=== PATIENT | male | born 1960 | race African-American/Black ===

== ENCOUNTER 2019-02-14 11:28 | Inpatient (IN) | payer MEDICARE, OTHER ==
--- NOTE | 2019-02-14 12:17 | RAD ---
PA AND LATERAL CHEST: Indication: Shortness of breath with bilateral lower extremity swelling. Comparison: None. FINDINGS: There is cardiomegaly with pulmonary vascular congestion and small bilateral pleural effusions, left greater than right. No acute osseous abnormality is evident. IMPRESSION: Findings of mild CHF. POS: [facility]
[2019-02-14 13:38] LABS: #Lymphocytes 1.1 thou/uL (1.20-3.40); #Monocytes 0.4 thou/uL (0.11-0.59); #Neutrophils 5.8 thou/uL (1.40-6.50); %Eosinophils 0.3 % (0.0-10.0); %Lymphocytes 15.4 % (21.0-51.0); %Monocytes 5.2 % (0.0-10.0); %Neutrophils 79.1 % (42.0-75.0); Hemoglobin 12.6 g/dL (14.0-18.0); Mean Corpuscular HGB CONC 30.2 g/dL (32.0-36.0); Mean Corpuscular Hemoglobin 26.4 pg (27.0-31.0); Mean Corpuscular Volume 87.4 fL (78.0-98.0); Mean Platelet Volume 8.2 fL (7.4-10.4); Platelet Count 183 thou/uL (130-400); RBC Distribution Width 13.8 % (11.5-14.5); Red Blood Cell (RBC) Count 4.76 mill/uL (4.70-6.10); White Blood Cell (WBC) Count 7.3 thou/uL (4.8-10.8)
[2019-02-14 13:58] LABS: ALT (SGPT) 58 U/L (8-55); AST (SGOT) 57 U/L (5-34); Albumin 3.4 g/dL (3.5-5.0); Alkaline Phosphatase 96 U/L (40-150); Anion Gap 8 mmol/L (10-20); BUN (Urea Nitrogen) 11 mg/dL (8.4-25.7); Bilirubin, Total 0.5 mg/dL (0.2-1.2); Calc. Creatinine Clearance 0 mL/min (70-130); Carbon Dioxide 37 mmol/L (22-29); Chloride 100 mmol/L (98-107); Estimated GFR-MDRD Greater than 90; Globulin 2.8 g/dL (2.4-3.5); Glucose 100 mg/dL (70-105); Potassium 3.3 mmol/L (3.5-5.1); Protein, Total 6.2 g/dL (6.0-8.3); Sodium 142 mmol/L (136-145)
[2019-02-14] MEDS ORDERED: Furosemide 100 MG/10 ML VIAL ONE (14:54)
[2019-02-14] MEDS ORDERED: Potassium Chloride 20 MEQ TAB ONE (14:54)
[2019-02-14] MEDS ORDERED: Aspirin Chewable 81 MG TAB ONE (14:54)
[2019-02-14 15:04] LABS: Bilirubin Negative (Negative); Blood, Urine Negative (Negative); Clarity TURBID (Clear); Glucose, Urine (Dipstick) Negative (Negative); Leukocyte Negative (Negative); Nitrite Negative (Negative); Protein, Urine (Dipstick) 30 mg/dL (Neg-Trace); Specific Gravity, Urine 1.011 (1.002-1.036); Urobilinogen 0.2 mg/dL (0.2-1.0); pH, Urine 7.5 (5.0-9.0)
[2019-02-14 15:05] LABS: Actual Bicarbonate (HCO3a) 33.8 mEq/L (22-28); Analyzer IN Cardio ER; Base Excess (BEa) 8.6 mEq/L (-2.0 to +3.0); Calcium, Ionized 1.14 mmol/L (1.12-1.30); Carboxyhemoglobin (COHb) 1.2 gm% (0.0-3.0); Hemoglobin (Hb) 13.4 g/dL (14.0-18.0); Potassium - ABG Lab 3.28 mmol/L (3.70-5.30); pH, Arterial 7.46 (7.35-7.45)
[2019-02-14 15:06] LABS: Bacteria/HPF None Seen HPF (None Seen); Hyaline Casts/LPF 0-3 HYALINE CAST LPF (0-3 Hyaline); Squamous Epithelial 0-3 HPF (0-3); WBC/HPF 0-3 HPF (0-3)
[2019-02-14 15:07] LABS: O2 Tension (PaO2) 50.3 mmHg (80.0-100.0)
[2019-02-14 15:08] LABS: Puncture Site RRA
[2019-02-14 15:08] LABS: CKMB 25.1 ng/mL (0-6.6)
[2019-02-14] MEDS ORDERED: Nitroglycerin 2% Ointment 1 INCH/1 GM Packet ONE (15:34)
[2019-02-14] MEDS ORDERED: Metoprolol Tartrate 5 MG/5 ML VIAL IVP SCH (18:00)
[2019-02-14] MEDS ORDERED: Acetaminophen 325 MG TAB PO PRN (18:00)
[2019-02-14] MEDS ORDERED: cloNIDine 0.1 MG TAB PO PRN (18:00)
[2019-02-14] MEDS ORDERED: hydrALAZINE 20 MG/ML VIAL SLOW IVP PRN (18:00)
[2019-02-14 18:26] LABS: Troponin I 0.071 ng/mL (< 0.028)
[2019-02-14] MEDS ORDERED: ALPRAZolam 0.25 MG TAB PO PRN (20:23)
[2019-02-14] MEDS: Famotidine 20 MG TAB PO SCH (20:28)
[2019-02-14] MEDS: Carvedilol 6.25 MG TAB PO SCH (20:28)
[2019-02-14] MEDS ORDERED: ALPRAZolam 0.5 MG TAB PO SCH (20:30)
[2019-02-14 20:40] LABS: Troponin I 0.067 ng/mL (< 0.028)
[2019-02-14] MEDS: Lorazepam 2 MG/ML VIAL SLOW IVP PRN (22:07)
[2019-02-14] MEDS ORDERED: Rocuronium Bromide 10 MG/ML (10ML VIAL) ONE (23:00)
[2019-02-14] MEDS ORDERED: PROPOFOL 200 MG/20 ML VIAL ONE (23:00)
[2019-02-14 23:50] LABS: Actual Bicarbonate (HCO3a) 38.4 mEq/L (22-28); Base Excess (BEa) 9.6 mEq/L (-2.0 to +3.0); Calcium, Ionized 1.18 mmol/L (1.12-1.30); Carboxyhemoglobin (COHb) 1.5 gm% (0.0-3.0); Hemoglobin (Hb) 12.8 g/dL (14.0-18.0); pH, Arterial 7.33 (7.35-7.45)
[2019-02-14] MEDS ORDERED: Furosemide 40 MG/4 ML VIAL ONE (23:56)
[2019-02-14] MEDS ORDERED: Furosemide 100 MG/10 ML VIAL SLOW IVP SCH (23:59)
--- NOTE | 2019-02-15 00:06 | RAD ---
PORTABLE CHEST ONE VIEW: 02/14/19 at 11:47 p.m. HISTORY: Respiratory distress. FINDINGS/IMPRESSION: The heart is enlarged. There is pulmonary vascular congestion. No lobar consolidation, pneumothoraces or large effusions are seen. POS: [facility]
--- NOTE | 2019-02-15 00:12 | PDOC.EVN ---
Event Note - Event Note Event Note: Called by nursing for increasing agitation, resp distress despite BiPAP NIMV for CHF exacerbation. Received Lasix 60mg IV in the ED at 1500 but none since. VS 140/106, HR 90's, RR 25, T-97.3F, O2 sat 100% on 30% FIO2 with BiPAP, Somnolent on exam, opens eyes briefly to name and tactile, resp distress BiPAP mask on face, OP clear, neck supple Lungs: diminished in bases, accessory muscle use bilat CV: Sinus in 90's ABD: obese, soft, no palpable mass, no rebound EXT: + LE edema bilat, cap refill < 2 sec NEURO: somnolent, lethargic, agitated, does not follow commands PCXR - bilat pulm edema, cardiomegaly Tele - sinus in 90's AB.328/74.8/59.7/38.4/87% on FIO2 30% BiPAP A/P: Acute hypoxic/hypercapneic resp failure - suspect due to pulm edema and CHF exacerbation, Lasix 60mg IV x 1 now, consult Anesthesia for anticipated intubation [facility], continue BiPAP pending intubation CHF suspected systolic - Lasix 60mg IV x 1 now, Echo pending Elevated Troponin I - appears to be demand ischemia, echo pending, ASA Code Status - Full, surrogate is pt's sister Total Critical Care: 35min Addendum: pt responding to diuresis with Lasix 60mg IV x 1, will give another 40mg Lasix in 2 hours and monitor resp status. Continue BiPAP NIMV currently.
--- NOTE | 2019-02-15 00:35 | HP ---
PRIMARY CARE PHYSICIAN: Through the [facility]. CHIEF COMPLAINT: Shortness of breath. HISTORY OF PRESENT ILLNESS: Mr. Sotomayor is a 58-year-old gentleman who unfortunately is a very poor historian, partially I believe due to just extreme sleepiness and fatigue. The history is extremely limited. Mr. Sotomayor states that he came to the emergency room because he was having trouble breathing. When asked how long this has been going on, he says it is "when he started moving around, he was very vague; and how many days it has been happening, one time he suggested it was just a couple of days, then other times he says it has been a month, and other times a couple of weeks. However, he admits that he has not had any of his medications in a couple of months and he began having some shortness of breath about a month later. He also notes increased swelling in his legs and that is about for the last month as well. He also says he has a pressure in his chest "all the time," but denies any chest pain. He also says that he falls asleep a lot without even knowing it and admits that he probably should have a sleep study done, but has not had that checked before and he has been falling asleep while we try to talk to him in the room. He denies any fevers or chills. No nausea, no vomiting, etc. REVIEW OF SYSTEMS: Extremely limited due to the patient's sleepiness. PAST MEDICAL HISTORY: Significant for hypertension. PAST SURGICAL HISTORY: He says he has had back surgery. ALLERGIES: NO KNOWN DRUG ALLERGIES. SOCIAL HISTORY: He is a nonsmoker and nondrinker. He is single. He has 2 children. FAMILY HISTORY: Significant for hypertension. MEDICATIONS: Currently unknown. He even had some difficulty telling us what Pharmacy he goes to and the nurse was in the room at the same time. PHYSICAL EXAMINATION: GENERAL: He is arousable, but very lethargic. He is well developed and well nourished, but does appear to be slightly unkempt. VITAL SIGNS: The blood pressure was approximately 190/111, heart rate 99, respiratory rate of 16, and he is afebrile. HEENT: His pupils are equal, round, and reactive. Extraocular muscles are intact. His sclerae are anicteric. THROAT: There was no erythema, no exudates. NECK: No adenopathy. No bruits. LUNGS: He has got basilar rales. No wheezing or rhonchi. CARDIOVASCULAR: He had distant heart sounds. Normal S1 and S2. No S3 or S4. No murmurs, clicks, or rubs. ABDOMEN: Obese, it is soft, it is nontender, nondistended. Positive for bowel sounds. There is no rebound or guarding. EXTREMITIES: He has 2+ pitting edema bilaterally. NEUROLOGIC: Grossly nonfocal. Cranial nerves are intact. SKIN AND INTEGUMENT: He does have some broken areas on the skin with weeping fluid which is clear on the lower extremities. LABORATORY RESULTS: Sodium is 142, potassium 3.3, chloride is 100, CO2 is 37, BUN of 11, creatinine 0.92, glucose is 100. Natriuretic peptide is 3204. His white blood cell count 7.3, hemoglobin 12.6, hematocrit is 41.7, and platelet count is 183. Urinalysis was negative. He had a troponin slightly elevated at 0.73. IMAGING STUDIES: Chest x-ray showed bibasilar infiltrates and pleural effusions. This is by my reading. His EKG was sinus, the rate was 84, and he had some nonspecific ST wave changes. ASSESSMENT: 1. This is a 58-year-old gentleman who presents to the emergency room complaining of dyspnea on exertion. He had radiographic finding suggestive of congestive heart failure as well as an elevated natriuretic peptide. He has no known history of CHF. He initially was on BiPAP in the emergency room. He will therefore be admitted to the [facility]. We will continue BiPAP as needed. Continue IV diuretics with Lasix. He will need blood pressure management. We will start an SUZY inhibitor as tolerated and place him on aspirin and nitrates as well. We will also get an echocardiogram and consider Cardiology consultation based on his echo results. 2. Hypertensive urgency. This is likely as a result of noncompliance. We will need to find the names and doses of his medications and adjust these as needed. Continue the SUZY inhibitor as tolerated once again due to heart failure symptoms. 3. Excessive daytime sleepiness and obesity. He likely has diagnosed sleep apnea and once he is a bit more stable we can reinforce the need for an outpatient sleep study. Job ID: [id number]
[2019-02-15 00:55] LABS: CO2 Tension 74.8 mmHg (35.0-45.0); O2 Tension (PaO2) 59.7 mmHg (80.0-100.0)
[2019-02-15 00:56] LABS: Puncture Site LRA
[2019-02-15] MEDS ORDERED: Propofol 1,000 MG/100 ML VIAL IV ONE (01:42)
--- NOTE | 2019-02-15 01:58 | PDOC.EVN ---
Event Note - Event Note Event Note: Called to supervise endotracheal intubation for patient who had failed Bipap therapy for CHF. Dr Madden is Attending. Progressive propofol bolus of 10mg then another 10mg given for sedation. Then 100mg rocuronium given. Dr Smith attempted glidescope intubation. She was unsuccessful. Dr Ramírez attempted with glidescope but was unsuccessful. I attempted first with glidescope but was unable to visualize the vocal cords. Attempts were made with the mac then sharp blades without success. Between each attempt patient was ventilated with ambubag. Anesthesia was called. The CARE PROVIDER attempted with glidescope, then Milller blade without success. Dr Nguyen of the ER came to help and attempted ET palcement eithout success. While plans for LMA placement and ET placement in OR were being made, the CARE PROVIDER was successful with the glidescope. Patient stable on mechanical ventilation.
[2019-02-15] MEDS: Propofol 1,000 MG/100 ML VIAL IV PRN ×3 (02:00→16:22)
[2019-02-15] MEDS ORDERED: CCU Electrolyte Replacement 1 EACH FS SCH (02:04)
[2019-02-15] MEDS ORDERED: Ventilator Sedation Protocol 1 EACH FS SCH (02:04)
[2019-02-15] MEDS ORDERED: CCU ELECTROLYTE REPLACEMENT PROTOCOL FS PRN (02:07)
[2019-02-15] MEDS ORDERED: PHOS-NAK 1 PKT PACK PO PRN ×2 (02:07)
[2019-02-15] MEDS ORDERED: Potassium Phosphate 12 MMOL in Sodium Chloride 0.9% 250 ML 250 ML IV PRN (02:07)
[2019-02-15] MEDS ORDERED: Potassium Phosphate 9 MMOL in Sodium Chloride 0.9% 100 ML IVPB PRN (02:07)
[2019-02-15] MEDS ORDERED: Potassium Phosphate 15 MMOL in Sodium Chloride 0.9% 250 ML 250 ML IV PRN (02:07)
[2019-02-15] MEDS ORDERED: Potassium Chloride 40 MEQ in Sodium Chloride 0.9% 250 ML 250 ML IVPB PRN (02:07)
[2019-02-15] MEDS ORDERED: Magnesium 2 GM/50 ML 2 GM in Premix Bag 1 BAG IVPB PRN (02:07)
[2019-02-15] MEDS ORDERED: Potassium Chloride 20 MEQ TAB PO PRN (02:07)
[2019-02-15] MEDS ORDERED: Magnesium Oxide 400 MG TAB PO PRN ×2 (02:07)
[2019-02-15] MEDS ORDERED: Potassium Chloride 40 MEQ in Premix Bag 1 BAG IVPB PRN (02:07)
[2019-02-15] MEDS ORDERED: DISCONTINUE PREVIOUS NARCOTIC PAIN MEDICATIONS AND BENZODIAZEPINES FS SCH (02:08)
[2019-02-15] MEDS ORDERED: Fentanyl BOLUS 250 ML IVPB PRN (02:08)
[2019-02-15] MEDS ORDERED: Morphine 2 MG/ML SYRINGE SLOW IVP PRN (02:08)
[2019-02-15] MEDS ORDERED: fentaNYL Citrate/PF 2,000 MCG in Sodium Chloride 0.9% 60 ML IV SCH (02:08)
[2019-02-15] MEDS ORDERED: Propofol BOLUS 1,000 MG/100 ML VIAL IV PRN (02:08)
[2019-02-15] MEDS ORDERED: Lorazepam 2 MG/ML VIAL SLOW IVP PRN (02:08)
[2019-02-15] MEDS ORDERED: hydrALAZINE 20 MG/ML VIAL SLOW IVP PRN (02:09)
[2019-02-15] MEDS ORDERED: Furosemide 40 MG/4 ML VIAL SLOW IVP SCH (02:15)
--- NOTE | 2019-02-15 02:15 | PDOC.EVN ---
Event Note - Event Note Event Note: Code Jaun called due to unresponsiveness and respiratory failure on BiPAP NIMV. Attempts to diurese with Lasix IV did not improve overall resp status. Called for assistance from FMR with unsuccessful attempts to intubate after appropriate sedation with Propofol, Rocuronium. Anesthesia called with initial attempts unsuccessful. ER attending attempted but could not place tube successfully. Anesthesia made another attempt and finally placed the tube successfully with Glidescope. Placement confirmed with breath sounds, chest rise , capnograph. PCXR pending. O2 sats stabilizing with intubation. Continue SIMV with FIO2 60%, PEEP 5, TV 500, PS 10, Rate 18. Add an additional Lasix 40mg IV x 1 now. Updated status with pt's sister who verbalizes understanding and agreement. Total critical care time: 45min
[2019-02-15 02:20] LABS: Amphetamine Not Detected (NotDetected); Barbiturates Screen Not Detected (NotDetected); Benzodiazepine Screen Detected (NotDetected); Cocaine Metabolite Screen Not Detected (NotDetected); Medtox Control Line Valid? VALID (VALID); Medtox Reader # READER 4; Methadone Not Detected (NotDetected); Methamphetamine Not Detected (NotDetected); Opiate Screen Not Detected (NotDetected); Oxycodone Screen Not Detected (NotDetected); Phencyclidine (PCP) Not Detected (NotDetected); THC/Cannabinoid Screen Detected (NotDetected); Tricyclic Screen Not Detected (NotDetected)
[2019-02-15 02:44] LABS: #Lymphocytes 0.9 thou/uL (1.20-3.40); #Monocytes 0.5 thou/uL (0.11-0.59); #Neutrophils 6.8 thou/uL (1.40-6.50); %Basophils 0.2 % (0.0-1.0); %Eosinophils 0.4 % (0.0-10.0); %Lymphocytes 10.5 % (21.0-51.0); %Monocytes 5.7 % (0.0-10.0); %Neutrophils 83.2 % (42.0-75.0); Hemoglobin 12.5 g/dL (14.0-18.0); Mean Corpuscular HGB CONC 30.8 g/dL (32.0-36.0); Mean Corpuscular Hemoglobin 27.5 pg (27.0-31.0); Mean Corpuscular Volume 89.3 fL (78.0-98.0); Mean Platelet Volume 8.6 fL (7.4-10.4); Platelet Count 180 thou/uL (130-400); RBC Distribution Width 13.7 % (11.5-14.5); Red Blood Cell (RBC) Count 4.55 mill/uL (4.70-6.10); White Blood Cell (WBC) Count 8.2 thou/uL (4.8-10.8)
[2019-02-15 02:50] LABS: ALT (SGPT) 57 U/L (8-55); AST (SGOT) 51 U/L (5-34); Albumin 3.4 g/dL (3.5-5.0); Alkaline Phosphatase 94 U/L (40-150); BUN (Urea Nitrogen) 13 mg/dL (8.4-25.7); Bilirubin, Total 0.5 mg/dL (0.2-1.2); Calc. Creatinine Clearance 112 mL/min (70-130); Calcium 8.7 mg/dL (7.8-10.44); Estimated GFR-MDRD 86; Globulin 2.7 g/dL (2.4-3.5); Glucose 123 mg/dL (70-105); Protein, Total 6.1 g/dL (6.0-8.3)
[2019-02-15 02:56] LABS: CO2 Tension 39.1 mmHg (35.0-45.0); Calcium, Ionized 1.12 mmol/L (1.12-1.30); Carboxyhemoglobin (COHb) 1.5 gm% (0.0-3.0); Hemoglobin (Hb) 14.1 g/dL (14.0-18.0); Potassium - ABG Lab 2.87 mmol/L (3.70-5.30)
[2019-02-15 03:01] LABS: Anion Gap 14 mmol/L (10-20); Carbon Dioxide 37 mmol/L (22-29); Chloride 97 mmol/L (98-107); Sodium 144 mmol/L (136-145)
[2019-02-15 03:13] LABS: ALV-art Gradient 347.225 (0-20); Puncture Site R BRACHIAL; pH, Arterial 7.57 (7.35-7.45)
[2019-02-15 06:43] LABS: #Lymphocytes 1.1 thou/uL (1.20-3.40); #Monocytes 0.3 thou/uL (0.11-0.59); #Neutrophils 6.5 thou/uL (1.40-6.50); %Basophils 0.3 % (0.0-1.0); %Eosinophils 0.1 % (0.0-10.0); %Lymphocytes 14.1 % (21.0-51.0); %Monocytes 4.3 % (0.0-10.0); %Neutrophils 81.3 % (42.0-75.0); Hemoglobin 13.1 g/dL (14.0-18.0); Mean Corpuscular HGB CONC 28.9 g/dL (32.0-36.0); Mean Corpuscular Hemoglobin 25.5 pg (27.0-31.0); Mean Corpuscular Volume 88.2 fL (78.0-98.0); Mean Platelet Volume 8.2 fL (7.4-10.4); Platelet Count 179 thou/uL (130-400); RBC Distribution Width 13.8 % (11.5-14.5); Red Blood Cell (RBC) Count 5.15 mill/uL (4.70-6.10)
[2019-02-15 07:01] LABS: BUN (Urea Nitrogen) 13 mg/dL (8.4-25.7); Calc. Creatinine Clearance 95 mL/min (70-130); Estimated GFR-MDRD 78; Glucose 93 mg/dL (70-105)
[2019-02-15 07:10] LABS: Anion Gap 14 mmol/L (10-20); Carbon Dioxide 37 mmol/L (22-29); Chloride 97 mmol/L (98-107); Potassium 3.3 mmol/L (3.5-5.1); Sodium 145 mmol/L (136-145)
--- NOTE | 2019-02-15 07:49 | RAD ---
EXAM: Portable chest PROVIDED CLINICAL HISTORY: Intubation COMPARISON: 02/14/2019 FINDINGS: Cardiac silhouette remains enlarged. Left basilar pleural and/or parenchymal opacity is redemonstrate d. Prominence of the pulmonary vasculature and pulmonary interstitium. Vascular calcification. Interv al intubation, with tip of ET tube approaching bree. Enteric catheter is noted, the tip of which is not visualized but the distal visualized aspects of which overlie the left upper quadrant. IMPRESSION: 1. Interval intubation and placement of enteric catheter as above. 2. Cardiomegaly and findings suggesting congestive failure or volume overload with left basilar pleur al and/or parenchymal opacity.
[2019-02-15] MEDS: Furosemide 40 MG/4 ML VIAL SLOW IVP SCH ×2 (07:50→13:47)
[2019-02-15] MEDS: Famotidine 20 MG TAB PO SCH (08:54)
[2019-02-15] MEDS: Enoxaparin Sodium 40 MG/0.4 ML SYRINGE SC SCH (08:54)
[2019-02-15] MEDS: Carvedilol 6.25 MG TAB PO SCH ×2 (08:54→22:22)
[2019-02-15] MEDS: Pantoprazole 40 MG VIAL IVP SCH (08:55)
[2019-02-15] MEDS: Aspirin 325 MG TAB PO SCH (08:55)
[2019-02-15] MEDS ORDERED: Enoxaparin Sodium 40 MG/0.4 ML SYRINGE SC SCH (09:00)
[2019-02-15] MEDS: Lisinopril 10 MG TAB PO SCH (09:49)
--- NOTE | 2019-02-15 10:08 | PDOC.PULCN ---
Pulmonology Consult: HPI - Date of Consult Date: 02/15/19 Time: 10:00 - Consult Details Reason for Consult: Endotracheal Intubation Requesting Physician: Dr. Madden - History of Present Illness HPI: LILY LLOYD JR is a 58 year-old M Patient presented to ED for increasing SOB. However, prior documentation states he is poor historian. Patient was admitted for CHF exacerbation and started on appropriate treatment. On 02/14/19 patient became agitated and ABG was drawn at that time showing Chronic Hypercapnia. Primary team moved toward intubation. Patient required 9 attempts for intubation and was finally successful. This morning patient is intubated and sedated. Per nursing staff, there were questioning some perioral and tongue soft tissue swelling and were unsure if this was an angioedema picture. No other history is able to be obtained at this time. Pulmonology Consult: ROS - Review of Systems ROS unobtainable: due to endotracheal tube Pulmonology Consult: PMH Source: other (ED record and prior documentation) Past Medical History: HTN - Family History Pertinent family history: Unable to be obtained. He does have two children. - Social History Smoking Status: Current every day smoker Alcohol Use: none Drug Use History: none Living Situation: independent Pulmonology Consult: Meds - Medications Medications: Current Medications Acetaminophen (Tylenol) 650 mg PO Q4H PRN PRN Reason: Headache/Fever/Mild Pain (1-3) Alprazolam (Xanax) 0.25 mg PO TIDPRN PRN PRN Reason: Anxiety Aspirin (Aspirin) 325 mg PO DAILY [facility] Last Admin: 02/15/19 08:55 Dose: 325 mg Carvedilol (Coreg) 6.25 mg PO BID [facility] Last Admin: 02/15/19 08:54 Dose: 6.25 mg Clonidine (Catapres) 0.1 mg PO Q4H PRN PRN Reason: SBP Greater Than 170 Enoxaparin Sodium (Lovenox) 40 mg SC 0900 [facility] Last Admin: 02/15/19 08:54 Dose: 40 mg Famotidine (Pepcid) 20 mg PO BID [facility] Last Admin: 02/15/19 08:54 Dose: 20 mg Furosemide (Lasix) 40 mg SLOW IVP 0600,1400 [facility] Last Admin: 02/15/19 07:50 Dose: Not Given Hydralazine HCl (Apresoline) 20 mg SLOW IVP Q4H PRN PRN Reason: SBP > 180 and HR < 70 Potassium Chloride 40 meq/ (Sodium Chloride) 270 mls @ 135 mls/hr IVPB ASDIR PRN PRN Reason: FOR SERUM K+ 2.5 - 3.5 Potassium Chloride 40 meq/ (Device) 100 mls @ 50 mls/hr IVPB ASDIR PRN PRN Reason: FOR SERUM K+ 2.5 - 3.5 Magnesium Sulfate 1 gm/ Sodium (Chloride) 102 mls @ 102 mls/hr IV PRN PRN PRN Reason: MAG LEVEL 1.4 - 2.0 Magnesium Sulfate 2 gm/ Device 50 mls @ 50 mls/hr IVPB ASDIR PRN PRN Reason: MAGNESIUM < 1.4 Potassium Phosphate 9 mmol/ (Sodium Chloride) 103 mls @ 25.75 mls/hr IVPB ASDIR PRN PRN Reason: Phosphate 1.0-1.8 Potassium Phosphate 12 mmol/ (Sodium Chloride) 254 mls @ 63.5 mls/hr IV ASDIR PRN PRN Reason: Serum phosphate 0.5-0.9 Potassium Phosphate 15 mmol/ (Sodium Chloride) 255 mls @ 63.75 mls/hr IV ASDIR PRN PRN Reason: Serum Phos < 0.5 Fentanyl Citrate (Fentanyl Bolus) 250 mls @ 0 mls/hr IVPB PRN PRN PRN Reason: Breakthrough pain/agitation Stop: 03/17/19 02:08 Fentanyl Citrate 2,000 mcg/ (Sodium Chloride) 100 mls @ 0 mls/hr IV INF AWA; Protocol Stop: 03/17/19 02:08 Lisinopril (Zestril) 10 mg PO DAILY [facility] Last Admin: 02/15/19 09:49 Dose: Not Given Lorazepam (Ativan) 1 mg SLOW IVP Q8H PRN PRN Reason: Anxiety/Agitation Last Admin: 02/14/19 22:07 Dose: 1 mg Lorazepam (Ativan) 2 mg SLOW IVP Q1H PRN PRN Reason: Breakthrough agitation Stop: 03/17/19 02:08 Last Admin: 02/15/19 04:58 Dose: 2 mg Magnesium Oxide (Magnesium Oxide) 400 mg PO BIDPRN PRN PRN Reason: FOR SERUM MAG 1.4 - 2.0 Magnesium Oxide (Magnesium Oxide) 800 mg PO PRN PRN PRN Reason: FOR SERUM MAG < 1.4 Miscellaneous Medication (Ccu Electrolyte Replacement) 1 each FS ONE [facility] Stop: 03/17/19 02:05 Miscellaneous Medication (Ventilator Sedation Protocol) 1 each FS ONE [facility] Stop: 03/17/19 02:05 Miscellaneous Medication (Phos-Nak) 1 pkt PO TIDPRN PRN PRN Reason: FOR PHOS LEVEL 1.0 - 1.8 Miscellaneous Medication (Phos-Nak) 2 pkt PO TIDPRN PRN PRN Reason: FOR PHOS LEVEL 0.5 - 1.0 Morphine Sulfate (Morphine) 2 mg SLOW IVP Q1H PRN PRN Reason: BREAKTHROUGH PAIN/Agitation Stop: 03/17/19 02:08 Ccu Electrolyte (Replacement Protocol) 0 each FS PRN PRN PRN Reason: FOR ELECTROLYTE REPLACEMENT Discontinue Previous Narcotic Pain Medications And Benzodiazepines 1 each FS .ONE [facility] Stop: 03/17/19 02:08 Pantoprazole Sodium (Protonix) 40 mg IVP DAILY [facility] Last Admin: 02/15/19 08:55 Dose: 40 mg Potassium Chloride (K-Dur) 40 meq PO ASDIR PRN PRN Reason: FOR SERUM K+ 2.5 - 3.5 Potassium Chloride (Klor-Con) 40 meq PER TUBE ASDIR PRN PRN Reason: FOR SERUM K+ 2.5-3.5 Last Admin: 02/15/19 08:55 Dose: 40 meq Propofol (Diprivan) 1,000 mg IV INF PRN; Protocol PRN Reason: TO ACHIEVE GOAL RASS Stop: 03/17/19 02:08 Last Admin: 02/15/19 06:49 Dose: 1,000 mg Propofol (Diprivan Bolus) 20 mg IV Q5MIN PRN PRN Reason: BREAKTHROUGH AGITATION Stop: 03/17/19 02:08 Sodium Chloride (Flush - Normal Saline) 10 ml IVF Q12HR [facility] Last Admin: 02/15/19 08:59 Dose: 10 ml Sodium Chloride (Flush - Normal Saline) 10 ml IVF PRN PRN PRN Reason: Saline Flush - Allergies Allergies/Adverse Reactions: Allergies Allergy/AdvReac Type Severity Reaction Status Date / Time No Known Drug Allergies Allergy Verified 02/15/19 10:18 Pulmonology Consult: PE - Physical Exam Constitutional: NAD HEENT: moist MMs Deviation from normal: ET in place -: Lower lip swelling and tongue protusion present. Cardiovascular: RRR, no significant murmur Respiratory: clear to auscultation anteriorly, clear to auscultation bilaterally , respiratory distress. negative: rales, rhonchi, wheezes Gastrointestinal: soft, non-tender, no distention, positive bowel sounds Musculoskeletal: edema present Deviation from normal: Trace pitting edema bilaterally. Deviation from normal: intubated and sedated Deviation from normal: intubated and sedated Skin: no rash Pulmonology Consult: Results - Labs Result Diagrams: 02/20/19 04:26 02/20/19 04:26 - ABG Interpretation ABG Results: ABG pH 7.57 (7.35-7.45) H* 02/15/19 02:48 ABG pCO2 39.1 mmHg (35.0-45.0) 02/15/19 02:48 ABG O2 Sat Calc/Sylvie 98.5 % (94.0-98.0) H 02/15/19 02:48 ABG Base Excess 12.0 mEq/L (-2.0 to +3.0) H 02/15/19 02:48 Pulmonology Consult: A/P - Problem (1) Elevated brain natriuretic peptide (BNP) level Current Visit: Yes Code(s): R79.89 - OTHER SPECIFIED ABNORMAL FINDINGS OF BLOOD CHEMISTRY Status: Acute (2) Fluid overload Current Visit: Yes Code(s): E87.70 - FLUID OVERLOAD, UNSPECIFIED Status: Acute Qualifiers: Hypervolemia type: other Qualified Code(s): E87.79 - Other fluid overload (3) Dyspnea Current Visit: Yes Code(s): R06.00 - DYSPNEA, UNSPECIFIED Status: Acute (4) Difficult airway for intubation Current Visit: Yes Code(s): T88.4XXA - FAILED OR DIFFICULT INTUBATION, INITIAL ENCOUNTER Status: Acute (5) Hypertension Current Visit: Yes Code(s): I10 - ESSENTIAL (PRIMARY) HYPERTENSION Status: Acute - Time Time: 50% of the time was spent in coordination of care (as documented) at patient's floor/unit and/or counseling patient. Time with Patient: greater than 50 minutes - Plan Plan: (1) Elevated brain natriuretic peptide (BNP) level - 3168 on admission - No history of CHF - Likely CHF exacerbation - ECHO pending at this time - Diuresis - [facility] - Cardiology consulted, appreciate Dr. Brand's recommendations (2) Fluid overload - Secondary to above - monitor fluid intake - Diuresis (3) Dyspnea - Likely secondary to above (4) Difficult airway for intubation - Questionable history of angioedema - 9 attempts and then successful with WIRE DROPPER with glidescope - No documentation of facial swelling prior to intubation - Will confirm with team as to presentation of facial swelling - Will give medications for angioedema as precaution - Plan to extubate in next 24-48 hours (5) Hypertension - Continue medication regimen - BP WNL currently - Will hold Lisinopril until further history of angioedema ruled out - Will continue to titrate medications Patient was seen and evaluated with Dr. Vieyra who is in agreement with plan. Disposition: Stable, will continue current plan of care. Addendum - Attending - Attending Attestation Date/Time: 02/15/19 1500 I personally evaluated the patient and discussed the management with Dr. Malhotra. I agree with the History, Examination, Assessment and Plan documented above with any addition or exceptions noted below. Acute hypoxic respiratory failure superimposed on chronic hypercapnic respiratory failure. CHF suspected. Critical care time: 30 minutes.
[2019-02-15] MEDS ORDERED: Spironolactone 25 MG TAB PO SCH (11:15)
--- NOTE | 2019-02-15 11:20 | CON ---
DATE OF CONSULTATION: 02/15/2019 REASON FOR CONSULTATION: Congestive heart failure. HISTORY OF PRESENT ILLNESS: Mr. Sotomayor is a 58-year-old gentleman with congestive heart failure and respiratory failure, now on the ventilator. History is obtained through the chart as the patient is currently intubated and sedated. The patient presented to the hospital yesterday with shortness of breath, sleepiness, and fatigue. He noted swelling in his legs for about a month. He said he fell asleep very easily. The patient later had worsening with shortness of breath and required intubation. REVIEW OF SYSTEMS: Not obtainable. He is intubated on the ventilator. PAST MEDICAL HISTORY: Hypertension. PAST SURGICAL HISTORY: Back surgery. ALLERGIES: NONE KNOWN. SOCIAL HISTORY: Nonsmoker, nondrinker. Two children. FAMILY HISTORY: Hypertension. MEDICATIONS: At home, unknown. PHYSICAL EXAMINATION: GENERAL: Now this gentleman is a middle-aged gentleman, intubated and sedated on the ventilator. VITAL SIGNS: Blood pressure 122/80, pulse is in the 80s. HEENT: Eyes, nonicteric. Mouth, endotracheal tube in place. NECK: Veins appear within normal limits. Neck is short. LUNGS: Clear anteriorly and laterally. CARDIAC: Somewhat distant. No murmur, rub, or gallop. ABDOMEN: Obese and nontender. EXTREMITIES: No clubbing or cyanosis. There is mild to moderate peripheral edema. Dorsalis pedis pulses palpable. SKIN: Warm and dry. PERTINENT LABORATORY: BNP 3168, troponin indeterminate at 0.071, and potassium was 4.0, now 3.3. The patient is having an excellent response to the diuretic intravenously. Echocardiogram; ejection fraction 25% to 30% with a dilated left ventricle. EKG; sinus rhythm, nonspecific T-wave changes. ASSESSMENT: 1. Suspect cardiomyopathy. 2. Hypertension. 3. Congestive heart failure, systolic, acute on chronic as mentioned, I suspect he probably has cardiomyopathy. 4. Concern for noncompliance with medications. PLAN: 1. Agree with diuretics. 2. Spironolactone. 3. Agree with carvedilol. 4. There was some question about whether he could have angioedema from the SUZY inhibitors, but talking to the nurses, it sounds like that is just a question that has been raised, but there is apparently really no evidence this is the case. I will be reluctant to label him as such. If we do not give him SUZY inhibitors, there is a much higher chance that his heart failure will further worsen chronically. I will be glad to follow with you. Ultimately, we would like to get LifeVest if it is financially feasible prior to discharge, ultimately cardiac catheterization once stable if he continues to improve. Job ID: [id number]
[2019-02-15] MEDS: diphenhydrAMINE 50 MG/ML VIAL IVP SCH ×2 (11:54→18:15)
[2019-02-15] MEDS: methylPREDNISolone Sod Succ 40 MG VIAL IVP SCH ×2 (13:47→22:22)
[2019-02-15] MEDS ORDERED: Potassium Chloride 20 MEQ TAB PO SCH (14:00)
--- NOTE | 2019-02-15 17:42 | PDOC.PN ---
- Subjective Encounter Start Date: 02/15/19 Encounter Start Time: 17:40 -: non-verbal Subjective: Admitted with worsening SOB and edemma associated with chest discomfort. -: Found to have acute respiratory failure. Started on BIPAP and diuretics, -: failed BIPAP and was intubated. - Objective Resuscitation Status - Order Detail: 02/14/19 17:53 Resuscitation Status Routine Resuscitation Status: FULL: Full Resuscitation Vital Signs & Weight: Vital Signs (12 hours) Temp Pulse Resp BP Pulse Ox 02/15/19 16:00 98.7 F 11 L 02/15/19 15:01 77 112/78 02/15/19 14:00 11 L 02/15/19 13:01 78 123/81 02/15/19 12:00 98.3 F 11 L 02/15/19 10:37 79 02/15/19 10:00 11 L 02/15/19 09:49 129/78 02/15/19 08:54 126/89 02/15/19 08:00 97.7 F 12 100 02/15/19 07:47 72 02/15/19 06:00 99.0 F 12 Weight Admit Weight 213 lb 2.992 oz Weight 213 lb 2.992 oz Most Recent Monitor Data Heart Rate from ECG 84 NIBP 120/80 NIBP BP-Mean 93 Respiration from ECG 8 SpO2 97 I&O: 02/14/19 02/15/19 02/16/19 06:59 06:59 06:59 Intake Total 67.3 Output Total 3000 2755 Balance -2932.7 -2755 Result Diagrams: 02/15/19 06:31 02/15/19 06:31 Phys Exam - Physical Examination sedated and intubated HEENT: moist MMs ET tube in place Neck: supple ventilator transmitted sound noted Cardiovascular: RRR, no significant murmur Gastrointestinal: soft, positive bowel sounds obese Musculoskeletal: pulses present Moderate bilateral leg edema sedated Dx/Plan (1) Acute respiratory failure with hypoxia and hypercapnia Code(s): J96.01 - ACUTE RESPIRATORY FAILURE WITH HYPOXIA; J96.02 - ACUTE RESPIRATORY FAILURE WITH HYPERCAPNIA Status: Acute (2) Difficult airway for intubation Code(s): T88.4XXA - FAILED OR DIFFICULT INTUBATION, INITIAL ENCOUNTER Status: Acute (3) Acute on chronic systolic (congestive) heart failure Code(s): I50.23 - ACUTE ON CHRONIC SYSTOLIC (CONGESTIVE) HEART FAILURE Status : Acute (4) Cardiomyopathy Code(s): I42.9 - CARDIOMYOPATHY, UNSPECIFIED Status: Acute (5) AGNES (obstructive sleep apnea) Code(s): G47.33 - OBSTRUCTIVE SLEEP APNEA (ADULT) (PEDIATRIC) Status: Acute (6) Fluid overload Code(s): E87.70 - FLUID OVERLOAD, UNSPECIFIED Status: Acute (7) Hypertension Code(s): I10 - ESSENTIAL (PRIMARY) HYPERTENSION Status: Acute (8) Elevated CPK Status: Acute - Plan Continue diuretics and bronchodilators -: Sedation ventilator management as per critical care. -: Continue antihypertensives. -: Get urine drug screen -: Monitor CMP and CPK * .
[2019-02-15] MEDS: Famotidine/PF 20 mg/2ml Vial SLOW IVP SCH (22:22)
[2019-02-15] MEDS: Bacteriostatic Water 30 ML VIAL FS PRN (22:22)
[2019-02-16] MEDS: diphenhydrAMINE 50 MG/ML VIAL IVP SCH ×2 (00:17→06:32)
[2019-02-16] MEDS: methylPREDNISolone Sod Succ 40 MG VIAL IVP SCH (06:32)
[2019-02-16] MEDS: Bacteriostatic Water 30 ML VIAL FS PRN (06:32)
[2019-02-16] MEDS: Furosemide 40 MG/4 ML VIAL SLOW IVP SCH (06:33)
[2019-02-16 06:35] LABS: #Lymphocytes 1.1 thou/uL (1.20-3.40); #Monocytes 0.4 thou/uL (0.11-0.59); #Neutrophils 9.4 thou/uL (1.40-6.50); %Basophils 0.4 % (0.0-1.0); %Lymphocytes 9.7 % (21.0-51.0); %Monocytes 3.5 % (0.0-10.0); %Neutrophils 86.4 % (42.0-75.0); Mean Corpuscular HGB CONC 29.9 g/dL (32.0-36.0); Mean Corpuscular Hemoglobin 25.9 pg (27.0-31.0); Mean Corpuscular Volume 86.6 fL (78.0-98.0); Mean Platelet Volume 8.9 fL (7.4-10.4); Platelet Count 183 thou/uL (130-400); RBC Distribution Width 13.9 % (11.5-14.5); Red Blood Cell (RBC) Count 5.43 mill/uL (4.70-6.10); White Blood Cell (WBC) Count 10.9 thou/uL (4.8-10.8)
[2019-02-16] MEDS: Propofol 1,000 MG/100 ML VIAL IV PRN (06:41)
[2019-02-16 06:51] LABS: Platelet Morphology Comment Appears Adequate; RBC Morphology Normal
[2019-02-16 06:52] LABS: ALT (SGPT) 33 U/L (8-55); AST (SGOT) 23 U/L (5-34); Albumin 2.8 g/dL (3.5-5.0); Alkaline Phosphatase 81 U/L (40-150); Anion Gap 14 mmol/L (10-20); BUN (Urea Nitrogen) 16 mg/dL (8.4-25.7); Bilirubin, Total 0.6 mg/dL (0.2-1.2); CK (CPK) 228 U/L (30-200); Calc. Creatinine Clearance 87 mL/min (70-130); Calcium 8.9 mg/dL (7.8-10.44); Carbon Dioxide 35 mmol/L (22-29); Chloride 97 mmol/L (98-107); Estimated GFR-MDRD 76; Globulin 2.7 g/dL (2.4-3.5); Glucose 79 mg/dL (70-105); Magnesium 1.8 mg/dL (1.6-2.6); Potassium 4.1 mmol/L (3.5-5.1); Protein, Total 5.5 g/dL (6.0-8.3); Sodium 142 mmol/L (136-145)
--- NOTE | 2019-02-16 07:38 | RAD ---
Portable chest radiograph: 02/16/2019 COMPARISON: 02/15/2019 HISTORY:Respiratory failure, mechanical ventilation FINDINGS: Stable endotracheal tube and nasogastric tube. Stable increased density in the medial left lung base suggesting consolidation/collapse. Improved aeration in right lung base since prior exam. M ild residual linear density persists in the left upper lobe. IMPRESSION: Lines and tubes as detailed above. Increased density persists in the left base.
[2019-02-16] MEDS: Famotidine/PF 20 mg/2ml Vial SLOW IVP SCH ×2 (09:23→21:41)
[2019-02-16] MEDS: Spironolactone 25 MG TAB PO SCH (09:23)
[2019-02-16] MEDS: Aspirin 325 MG TAB PO SCH (09:23)
[2019-02-16] MEDS: Enoxaparin Sodium 40 MG/0.4 ML SYRINGE SC SCH (09:23)
[2019-02-16] MEDS: Carvedilol 6.25 MG TAB PO SCH ×2 (09:23→21:41)
--- NOTE | 2019-02-16 11:40 | PRG ---
DATE OF SERVICE: 02/16/2019 SERVICE: Pulmonary Medicine. INTERVAL HISTORY: The patient did really well last night. He has diuresed beautifully. He cannot provide any additional elements of the history and requires mechanical ventilation. He is still a little bit sleepy from the sedation, which has been turned off. He is currently on a holiday. I put him on a spontaneous breathing trial, but he is not putting enough volumes as of yet to safely extubate or continue the trial. As such, we are putting back on SIMV. We will try again later. There were no significant overnight events. He is a little bit sleepy, but does wake up with stimulation. Within 3 seconds, will fall back to sleep. Note , no events overnight or fevers occurred. PHYSICAL EXAMINATION: VITAL SIGNS: Afebrile, pulse 88, blood pressure 144/95, respirations 16 and saturation 97% on 29% of FiO2 and a PEEP of 5. GENERAL: The patient is awake and alert, in no apparent distress. LUNGS: Excellent air entry. Dependent crackles are noted. HEART: Normal rate, regular. ABDOMEN: Soft, nontender, nondistended. Bowel sounds are positive. MUSCULOSKELETAL: No cyanosis or clubbing. No pitting in the bilateral lower extremities. NEUROLOGIC: Grossly nonfocal. LABORATORY DATA: WBC 10.9, hemoglobin 14.0, and platelets 183,000. Creatinine 1.19 and stable, bicarb 35. Basic metabolic profile and liver function studies are otherwise unremarkable, BNP 3100 and gently downtrending. Urinalysis is unremarkable. Benzodiazepine and cannabinoids are positive in the urine drug screen. Of note, benzodiazepines were given as an induction medication. IMAGING STUDIES: Chest x-ray demonstrates increased density persisting in the left base, improved aeration in the right lung. ASSESSMENT: 1. Acute hypoxic respiratory failure. 2. Chronic hypercapnic respiratory failure. 3. Acute systolic heart failure. 4. Difficult airway with GlideScope. DISCUSSION AND PLAN: The patient is doing fine. We will continue to diurese him gently through time. His oxygen requirements have profoundly improved. Once he wakes up, I will put him on a spontaneous breathing trial. If he meets criteria , extubation will be considered. Pulmonary Critical Care will continue to follow along. If he has increasing signs of sepsis, empiric antibiotics directed at that left lower lobe infiltrate will be considered, although I am doubtful this represents a true infection. Critical care time: 30 minutes. Job ID: [id number] MTDD
--- NOTE | 2019-02-16 13:04 | PDOC.PN ---
- Subjective Encounter Start Date: 02/16/19 Encounter Start Time: 11:37 Subjective: No new problem. -: Still intubated. -: More awake and responsive. - Objective Resuscitation Status - Order Detail: 02/14/19 17:53 Resuscitation Status Routine Resuscitation Status: FULL: Full Resuscitation Vital Signs & Weight: Vital Signs (12 hours) Temp Pulse Resp BP Pulse Ox 02/16/19 12:28 84 123/73 02/16/19 10:24 88 02/16/19 10:00 26 H 02/16/19 09:23 140/94 H 02/16/19 08:00 99 F 14 99 02/16/19 07:25 80 139/95 H 02/16/19 06:00 11 L 02/16/19 04:00 98.9 F 11 L 02/16/19 02:16 82 131/86 02/16/19 02:00 11 L Weight Admit Weight 213 lb 2.992 oz Weight 197 lb 1.492 oz Most Recent Monitor Data Heart Rate from ECG 84 NIBP 144/95 NIBP BP-Mean 111 Respiration from ECG 16 SpO2 97 I&O: 02/15/19 02/16/19 02/17/19 06:59 06:59 06:59 Intake Total 67.3 192.8 Output Total 3000 3895 1775 Balance -2932.7 -3702.2 -1775 Result Diagrams: 02/16/19 06:10 02/16/19 06:10 Phys Exam - Physical Examination Constitutional: NAD sedated HEENT: moist MMs ET and NG tubes in place ventilator transmitted sound heard all lung zones Cardiovascular: RRR, no significant murmur Gastrointestinal: soft, no distention, positive bowel sounds mild bilateral leg/foot edema sedated Dx/Plan (1) Acute respiratory failure with hypoxia and hypercapnia Code(s): J96.01 - ACUTE RESPIRATORY FAILURE WITH HYPOXIA; J96.02 - ACUTE RESPIRATORY FAILURE WITH HYPERCAPNIA Status: Acute (2) Difficult airway for intubation Code(s): T88.4XXA - FAILED OR DIFFICULT INTUBATION, INITIAL ENCOUNTER Status: Acute (3) Acute on chronic systolic (congestive) heart failure Code(s): I50.23 - ACUTE ON CHRONIC SYSTOLIC (CONGESTIVE) HEART FAILURE Status : Acute (4) Cardiomyopathy Code(s): I42.9 - CARDIOMYOPATHY, UNSPECIFIED Status: Acute Comment: EF of 25 -30% (5) AGNES (obstructive sleep apnea) Code(s): G47.33 - OBSTRUCTIVE SLEEP APNEA (ADULT) (PEDIATRIC) Status: Acute Comment: Suspected. given excessive daytime somnolence (6) Fluid overload Code(s): E87.70 - FLUID OVERLOAD, UNSPECIFIED Status: Acute (7) Hypertension Code(s): I10 - ESSENTIAL (PRIMARY) HYPERTENSION Status: Acute Comment: Uncontrolled. Not compliant on meds. (8) Elevated CPK Status: Acute - Plan Sedation and Vent management as per Pulm/critical care. -: Continue diuretics and antihypertensives -: Monitor renal funtion -: Apprecaite cardiology and Pulm/critical input. * .
[2019-02-16] MEDS: Pantoprazole 40 MG VIAL IVP SCH (21:40)
[2019-02-17 08:34] LABS: #Lymphocytes 1.3 thou/uL (1.20-3.40); #Monocytes 0.9 thou/uL (0.11-0.59); #Neutrophils 9.5 thou/uL (1.40-6.50); %Eosinophils 0.2 % (0.0-10.0); %Lymphocytes 11.3 % (21.0-51.0); %Monocytes 7.4 % (0.0-10.0); %Neutrophils 81.1 % (42.0-75.0); Hemoglobin 14.2 g/dL (14.0-18.0); MDiff Complete? YES; Mean Corpuscular HGB CONC 29.9 g/dL (32.0-36.0); Mean Corpuscular Hemoglobin 26.4 pg (27.0-31.0); Mean Corpuscular Volume 88.5 fL (78.0-98.0); Mean Platelet Volume 8.6 fL (7.4-10.4); Platelet Count 191 thou/uL (130-400); Polychromasia SLIGHT = 2-3 cells (100X) (0-2/hpf); RBC Distribution Width 14.2 % (11.5-14.5); Red Blood Cell (RBC) Count 5.37 mill/uL (4.70-6.10); White Blood Cell (WBC) Count 11.8 thou/uL (4.8-10.8)
[2019-02-17 09:17] LABS: Anion Gap 13 mmol/L (10-20); BUN (Urea Nitrogen) 20 mg/dL (8.4-25.7); Calc. Creatinine Clearance 99 mL/min (70-130); Calcium 8.9 mg/dL (7.8-10.44); Carbon Dioxide 37 mmol/L (22-29); Chloride 97 mmol/L (98-107); Estimated GFR-MDRD Greater than 90; Glucose 73 mg/dL (70-105); Magnesium 1.8 mg/dL (1.6-2.6); Potassium 3.1 mmol/L (3.5-5.1); Sodium 144 mmol/L (136-145)
[2019-02-17] MEDS: Enoxaparin Sodium 40 MG/0.4 ML SYRINGE SC SCH (10:00)
[2019-02-17] MEDS: Aspirin 325 MG TAB PO SCH (10:00)
[2019-02-17] MEDS: Famotidine/PF 20 mg/2ml Vial SLOW IVP SCH ×2 (10:00→22:00)
[2019-02-17] MEDS: Spironolactone 25 MG TAB PO SCH (10:00)
[2019-02-17] MEDS: Lisinopril 10 MG TAB PO SCH (10:00)
[2019-02-17] MEDS: Carvedilol 6.25 MG TAB PO SCH ×2 (10:00→21:59)
[2019-02-17] MEDS ORDERED: Magnesium Sulfate 2 GM in Sodium Chloride 0.9% 250 ML 250 ML IVPB SCH (12:00)
--- NOTE | 2019-02-17 12:13 | PRG ---
DATE OF SERVICE: 02/17/2019 SERVICE: Pulmonary Medicine. INTERVAL HISTORY: The patient is doing great from respiratory standpoint. He was slow to wake up from sedation, but ultimately, he came around. We then deflated his cuff in preparation for extubation. There was absolutely no air leak despite the fact that we turned pressures way up. As such, he was returned to mechanical ventilation overnight. We once again attempted this maneuver this morning and once again, he had absolutely no air leak. As such, we are putting him back on mechanical ventilation. I do not think it is prudent for us to extubate him under these circumstances, particularly given that he had a very difficult airway and traumatic injury with the prior intubation. PHYSICAL EXAMINATION: VITAL SIGNS: Afebrile. Pulse 84, blood pressure 125/83, respirations 14, saturations 99% on 29% of FiO2 and a PEEP of 5. GENERAL: The patient is intubated. He is requiring a little sedation to maintain comfort. HEENT: Normocephalic and atraumatic. Sclerae are white. Conjunctivae are pink. Oral mucosa is moist without lesions. LUNGS: Excellent air entry. Dependent crackles are minimal. Rhonchi are present today. No prolonged expiratory phase or wheezing is appreciated. HEART: Normal rate, regular. ABDOMEN: Soft, nontender, and nondistended. Bowel sounds are positive. MUSCULOSKELETAL: No cyanosis or clubbing. There is trace pitting in the bilateral lower extremities, which has dramatically improved. NEUROLOGIC: Grossly nonfocal. : Arechiga catheter in place. LABORATORY DATA: WBC 11.8 and gently up-trending, hemoglobin 14.2, platelets 191,000. Potassium 3.1, bicarb 37. Basic metabolic profile and magnesium are otherwise unremarkable. Urinalysis is unremarkable. Urine drug screen is positive for benzos and cannabinoids. ASSESSMENT: 1. Acute hypoxic respiratory failure. 2. Chronic hypercapnic respiratory failure. 3. Acute systolic heart failure. 4. Difficult airway with traumatic intubation. DISCUSSION AND PLAN: I am going to have Ear, Nose and Throat look at the back of his throat in the supraglottic structures. If they believe that it is amenable, I think it would be reasonable to extubate the patient in the operating room. If there is a difficulty with that, he will likely require repeat intubation and subsequent tracheostomy. There is no air leak. I actually increased the pressures up to a positive inspiratory pressure of 30. The patient was coughing on this and still there was no leak that was really detectable. This has been two days in a row. I think direct observation at this point would be warranted. Pulmonary/Critical Care will continue to follow along, but he will be maintained on mechanical ventilation until this airway issue can be resolved. CRITICAL CARE TIME: 30 minutes. Job ID: [id number]
--- NOTE | 2019-02-17 14:44 | PDOC.PN ---
- Subjective Encounter Start Date: 02/17/19 Encounter Start Time: 14:42 Subjective: awake and cooperative. -: Still intubated. - Objective Resuscitation Status - Order Detail: 02/14/19 17:53 Resuscitation Status Routine Resuscitation Status: FULL: Full Resuscitation Vital Signs & Weight: Vital Signs (12 hours) Temp Pulse Resp BP 02/17/19 11:33 81 124/97 H 02/17/19 10:00 137/87 02/17/19 07:12 84 125/83 02/17/19 06:00 13 02/17/19 05:00 99.4 F 02/17/19 04:00 13 Weight Admit Weight 213 lb 2.992 oz Weight 189 lb 13.088 oz Most Recent Monitor Data Heart Rate from ECG 78 NIBP 134/85 NIBP BP-Mean 101 Respiration from ECG 14 SpO2 99 I&O: 02/16/19 02/17/19 02/18/19 06:59 06:59 06:59 Intake Total 192.8 98.6 Output Total 3895 3690 Balance -3702.2 -3591.4 Result Diagrams: 02/17/19 07:32 02/17/19 08:47 Phys Exam - Physical Examination Constitutional: NAD awake HEENT: PERRLA, moist MMs ET and NG tubes in place Neck: no JVD, supple ventilator transmitted sound noted Cardiovascular: RRR, no significant murmur Gastrointestinal: soft, non-tender, no distention, positive bowel sounds Musculoskeletal: no edema, pulses present Neurological: non-focal, moves all 4 limbs awake and oriented. obeying commands Dx/Plan (1) Acute respiratory failure with hypoxia and hypercapnia Code(s): J96.01 - ACUTE RESPIRATORY FAILURE WITH HYPOXIA; J96.02 - ACUTE RESPIRATORY FAILURE WITH HYPERCAPNIA Status: Acute Comment: Due to pulmonary congestion due to acute CHF (2) Difficult airway for intubation Code(s): T88.4XXA - FAILED OR DIFFICULT INTUBATION, INITIAL ENCOUNTER Status: Acute (3) Acute on chronic systolic (congestive) heart failure Code(s): I50.23 - ACUTE ON CHRONIC SYSTOLIC (CONGESTIVE) HEART FAILURE Status : Acute (4) Cardiomyopathy Code(s): I42.9 - CARDIOMYOPATHY, UNSPECIFIED Status: Acute Comment: EF of 25 -30% (5) AGNES (obstructive sleep apnea) Code(s): G47.33 - OBSTRUCTIVE SLEEP APNEA (ADULT) (PEDIATRIC) Status: Acute Comment: Suspected. given excessive daytime somnolence (6) Fluid overload Code(s): E87.70 - FLUID OVERLOAD, UNSPECIFIED Status: Acute Qualifiers: Hypervolemia type: other Qualified Code(s): E87.79 - Other fluid overload (7) Hypertension Code(s): I10 - ESSENTIAL (PRIMARY) HYPERTENSION Status: Acute Comment: Uncontrolled. Not compliant on meds. Control acceptable now. (8) Elevated CPK Status: Acute (9) Hypokalemia Code(s): E87.6 - HYPOKALEMIA Status: Acute - Plan replete serum potassium with KCL. Get serum magnesium in am -: Continue diuretics. -: Extubation as per pulmonary -: Continue lisinopril and coreg. Will consider repeating echo. -: Cardiology following. * .
[2019-02-17] MEDS ORDERED: Furosemide 40 MG/4 ML VIAL SLOW IVP SCH (15:00)
--- NOTE | 2019-02-17 15:54 | PRG ---
DATE OF SERVICE: 02/17/2019 SUBJECTIVE: Mr. Sotomayor remains intubated on the ventilator. OBJECTIVE: VITAL SIGNS: His blood pressure is 129/81, pulse is in the 80s. LUNGS: Clear. CARDIAC: Normal S1 and S2. ABDOMEN: Soft, nontender. EXTREMITIES: Warm and dry. On reading Dr. Vieyra's note, he indicates that the patient appears to have some problem with the upper airway. Apparently, it is a very difficult intubation to start with. There was some initial question of whether maybe he had problem with the SUZY inhibitors causing angioedema. At this point, it is not clear to me, but I will go ahead and stop the SUZY inhibitors and substitute hydralazine for now. Continue to observe and evaluate this gentleman with treatment with beta blockers and hydralazine as well as nitrates at this point in view of the upper airway problems. Job ID: [id number]
[2019-02-17] MEDS: Isosorbide Dinitrate 20 MG TAB PO SCH (22:01)
[2019-02-17] MEDS: hydrALAZINE 25 MG TAB PO SCH (22:01)
[2019-02-18] MEDS: Lorazepam 2 MG/ML VIAL SLOW IVP PRN (00:16)
[2019-02-18 05:00] LABS: #Lymphocytes 1.2 thou/uL (1.20-3.40); #Monocytes 0.8 thou/uL (0.11-0.59); #Neutrophils 15.2 thou/uL (1.40-6.50); %Basophils 0.1 % (0.0-1.0); %Eosinophils 0.1 % (0.0-10.0); %Lymphocytes 6.9 % (21.0-51.0); %Monocytes 4.5 % (0.0-10.0); %Neutrophils 88.5 % (42.0-75.0); Hemoglobin 13.3 g/dL (14.0-18.0); Mean Corpuscular HGB CONC 30.5 g/dL (32.0-36.0); Mean Corpuscular Hemoglobin 26.5 pg (27.0-31.0); Mean Corpuscular Volume 86.9 fL (78.0-98.0); Mean Platelet Volume 8.9 fL (7.4-10.4); Platelet Count 187 thou/uL (130-400); Red Blood Cell (RBC) Count 5.02 mill/uL (4.70-6.10); White Blood Cell (WBC) Count 17.2 thou/uL (4.8-10.8)
[2019-02-18 05:27] LABS: Anion Gap 14 mmol/L (10-20); BUN (Urea Nitrogen) 25 mg/dL (8.4-25.7); Calc. Creatinine Clearance 86 mL/min (70-130); Calcium 8.6 mg/dL (7.8-10.44); Carbon Dioxide 37 mmol/L (22-29); Chloride 98 mmol/L (98-107); Estimated GFR-MDRD 79; Glucose 104 mg/dL (70-105); Magnesium 2.2 mg/dL (1.6-2.6); Sodium 146 mmol/L (136-145)
[2019-02-18] MEDS: Furosemide 40 MG/4 ML VIAL SLOW IVP SCH ×2 (06:15→15:10)
--- NOTE | 2019-02-18 08:30 | RAD ---
CHEST 1 VIEW: Date: 02/18/19 INDICATION: History of intubation. COMPARISON: Prior exam dated 02/16/19. FINDINGS: The patient remains intubated with associated gastric catheter. Cardiomegaly persists. There is worse tevin pulmonary vascular congestion and central edema pattern. There is worsening small left pleural e ffusion. No pneumothorax evident. IMPRESSION: 1. Worsening cardiomegaly, pulmonary vascular congestion, and small left pleural effusion. Recommend correlation for CHF or volume overload. 2. ET tube and gastric catheter appear unchanged. No pneumothorax. POS: BH
[2019-02-18] MEDS: Aspirin 325 MG TAB PO SCH (08:34)
[2019-02-18] MEDS: Carvedilol 6.25 MG TAB PO SCH ×2 (08:34→20:31)
[2019-02-18] MEDS: hydrALAZINE 25 MG TAB PO SCH ×2 (08:34→20:30)
[2019-02-18] MEDS: Spironolactone 25 MG TAB PO SCH (08:34)
[2019-02-18] MEDS: Famotidine/PF 20 mg/2ml Vial SLOW IVP SCH ×2 (08:34→20:31)
[2019-02-18] MEDS: Enoxaparin Sodium 40 MG/0.4 ML SYRINGE SC SCH (08:34)
[2019-02-18] MEDS: Isosorbide Dinitrate 20 MG TAB PO SCH ×2 (08:39→20:31)
[2019-02-18 08:40] LABS: Base Excess (BEa) 14.5 mEq/L (-2.0 to +3.0); Calcium, Ionized 1.15 mmol/L (1.12-1.30); Carboxyhemoglobin (COHb) 1.7 gm% (0.0-3.0); Hemoglobin (Hb) 14.4 g/dL (14.0-18.0); O2 Tension (PaO2) 62.5 mmHg (80.0-100.0); Potassium - ABG Lab 2.98 mmol/L (3.70-5.30)
[2019-02-18 08:56] LABS: Puncture Site RBA
--- NOTE | 2019-02-18 10:14 | PRG ---
DATE OF SERVICE: 02/18/2019 SUBJECTIVE: A 58-year-old gentleman, remains intubated in the vent on a CPAP, doing well. No distress. Apparently, he has a small leak. OBJECTIVE: VITAL SIGNS: Blood pressure 114/72, pulse 78, afebrile, respirations 18. CHEST: Decreased breath sounds. No wheezing. CARDIAC: Normal S1 and S2. No gallops. ABDOMEN: No masses. LABORATORY DATA: White count 13,000, hemoglobin and hematocrit of 13 and 43, platelet count normal. PO2 is 62 . Lytes are normal. Chest x-ray showed left-sided infiltrate and cardiomegaly. IMPRESSION: Congestive heart failure, left pleural effusion, pneumonia, leukocytosis, fever, respiratory failure, angioedema, traumatic intubation. Continue CPAP trial, empiric antibiotics, supportive care. We will follow Job ID: [id number]
[2019-02-18] MEDS: cefTRIAXone\\ROCEPHIN 1 GM in Sodium Chloride 0.9% 100 ML IVPB SCH (10:39)
[2019-02-18] MEDS ORDERED: Isosorbide Dinitrate 20 MG TAB PO SCH (11:30)
--- NOTE | 2019-02-18 11:56 | EKG ---
Test Reason : Blood Pressure : / mmHG Vent. Rate : 084 BPM Atrial Rate : 084 BPM P-R Int : 188 ms QRS Dur : 082 ms QT Int : 426 ms P-R-T Axes : 068 014 026 degrees QTc Int : 503 ms Normal sinus rhythm with sinus arrhythmia Possible Left atrial enlargement Nonspecific T wave abnormality Prolonged QT Abnormal ECG Confirmed by NAZ SANCHEZ M.D. ([id number]), greeting card editor PARADISE ACEVEDO ([id number]) on 02/18/2019 11:56:07 AM Referred By: Confirmed By:NAZ SANCHEZ M.D.
--- NOTE | 2019-02-18 14:13 | PDOC.PN ---
- Subjective Encounter Start Date: 02/18/19 Encounter Start Time: 14:11 Subjective: No new problem -: Still intubated. - Objective Resuscitation Status - Order Detail: 02/14/19 17:53 Resuscitation Status Routine Resuscitation Status: FULL: Full Resuscitation Vital Signs & Weight: Vital Signs (12 hours) Temp Pulse Resp BP Pulse Ox 02/18/19 13:51 79 106/64 02/18/19 12:00 99.3 F 14 02/18/19 10:00 13 02/18/19 09:00 98.6 F 02/18/19 08:44 78 114/72 02/18/19 08:34 75 114/72 02/18/19 08:00 14 93 L 02/18/19 06:00 12 02/18/19 04:00 98.7 F 12 02/18/19 02:46 75 Weight Admit Weight 181 lb 7.047 oz Weight 181 lb 7.047 oz Most Recent Monitor Data Heart Rate from ECG 77 NIBP 106/64 NIBP BP-Mean 78 Respiration from ECG 14 SpO2 97 I&O: 02/17/19 02/18/19 02/19/19 06:59 06:59 06:59 Intake Total 98.6 765.6 220 Output Total 3690 2365 340 Balance -3591.4 -1599.4 -120 Result Diagrams: 02/18/19 04:13 02/18/19 04:13 Phys Exam - Physical Examination Constitutional: NAD afebrile HEENT: PERRLA, moist MMs ET and NG tube noted Neck: supple fair air entry bilaterally with some trasmitted sound. Cardiovascular: RRR, no significant murmur Gastrointestinal: soft, non-tender, no distention, positive bowel sounds obese Musculoskeletal: no edema, pulses present Neurological: non-focal, moves all 4 limbs awake and obeying commands Dx/Plan (1) Acute respiratory failure with hypoxia and hypercapnia Code(s): J96.01 - ACUTE RESPIRATORY FAILURE WITH HYPOXIA; J96.02 - ACUTE RESPIRATORY FAILURE WITH HYPERCAPNIA Status: Acute Comment: Due to pulmonary congestion due to acute CHF (2) Difficult airway for intubation Code(s): T88.4XXA - FAILED OR DIFFICULT INTUBATION, INITIAL ENCOUNTER Status: Acute (3) Acute on chronic systolic (congestive) heart failure Code(s): I50.23 - ACUTE ON CHRONIC SYSTOLIC (CONGESTIVE) HEART FAILURE Status : Acute (4) Cardiomyopathy Code(s): I42.9 - CARDIOMYOPATHY, UNSPECIFIED Status: Acute Comment: EF of 25 -30%. (5) AGNES (obstructive sleep apnea) Code(s): G47.33 - OBSTRUCTIVE SLEEP APNEA (ADULT) (PEDIATRIC) Status: Acute Comment: Suspected. given excessive daytime somnolence (6) Fluid overload Code(s): E87.70 - FLUID OVERLOAD, UNSPECIFIED Status: Acute Qualifiers: Hypervolemia type: other Qualified Code(s): E87.79 - Other fluid overload (7) Hypertension Code(s): I10 - ESSENTIAL (PRIMARY) HYPERTENSION Status: Acute Comment: Uncontrolled. Not compliant on meds. Control acceptable now. (8) Elevated CPK Status: Acute (9) Hypokalemia Code(s): E87.6 - HYPOKALEMIA Status: Acute (10) Bilateral pulmonary infiltrates on CXR Code(s): R91.8 - OTHER NONSPECIFIC ABNORMAL FINDING OF LUNG FIELD Status: Acute Comment: Most likely due to pulmonary congestion. Pneumonia is suspected. - Plan * . We will restart patient on lisinopril. Lisinopril was stopped due to concern for angioedema. Patient had difficult intubation but there was no mention of airway swelling. About 7 attempts by diferent providers were made before successful intubation. It only natural that swelling of the airway if any is after intubation and patient has been on lisinopril. Moreso, home medicationreview showed that patient was on quinapril. Patient will certainly benefit from ACEI. We will replete serum potassium. We will also get serum magnesium and replete that if appropriate. Continue IV lasix. Tube feeding to continue. Vent mgt and extubation as per Pulmonary. Now on antibiotic for possible pneumonia given infiltrates on chest x ray, leucocytosis and temp of 100.2
[2019-02-18] MEDS: Potassium Chloride 20 MEQ TAB PO SCH ×2 (17:35→17:36)
[2019-02-18 20:21] LABS: BUN (Urea Nitrogen) 32 mg/dL (8.4-25.7); Calc. Creatinine Clearance 69 mL/min (70-130); Calcium 8.8 mg/dL (7.8-10.44); Estimated GFR-MDRD 65; Glucose 129 mg/dL (70-105)
[2019-02-18 20:30] LABS: Anion Gap 14 mmol/L (10-20); Carbon Dioxide 38 mmol/L (22-29); Chloride 101 mmol/L (98-107); Potassium 4.3 mmol/L (3.5-5.1); Sodium 149 mmol/L (136-145)
[2019-02-19] MEDS: Furosemide 40 MG/4 ML VIAL SLOW IVP SCH ×3 (06:42→20:28)
[2019-02-19 06:56] LABS: BUN (Urea Nitrogen) 36 mg/dL (8.4-25.7); Calc. Creatinine Clearance 75 mL/min (70-130); Calcium 8.9 mg/dL (7.8-10.44); Estimated GFR-MDRD 73; Glucose 110 mg/dL (70-105)
[2019-02-19 07:06] LABS: Anion Gap 14 mmol/L (10-20); Carbon Dioxide 35 mmol/L (22-29); Chloride 101 mmol/L (98-107); Potassium 3.7 mmol/L (3.5-5.1); Sodium 146 mmol/L (136-145)
[2019-02-19 07:10] LABS: Actual Bicarbonate (HCO3a) 35.8 mEq/L (22-28); Base Excess (BEa) 11.5 mEq/L (-2.0 to +3.0); CO2 Tension 44.4 mmHg (35.0-45.0); Calcium, Ionized 1.18 mmol/L (1.12-1.30); Carboxyhemoglobin (COHb) 1.1 gm% (0.0-3.0); Hemoglobin (Hb) 14.8 g/dL (14.0-18.0); O2 Tension (PaO2) 67.1 mmHg (80.0-100.0); Potassium - ABG Lab 3.52 mmol/L (3.70-5.30); pH, Arterial 7.52 (7.35-7.45)
[2019-02-19 07:17] LABS: Puncture Site RBA
--- NOTE | 2019-02-19 08:22 | RAD ---
EXAM: XR Chest 1 View Portable PROVIDED CLINICAL HISTORY: Pulmonary congestion COMPARISON: 02/18/2019 FINDINGS: Endotracheal tube and enteric catheter are redemonstrated. Interval improvement in pulmonary vascular congestion and left hemithoracic airspace disease. No evidence for pleural fluid or pneumothorax. IMPRESSION: Interval improvement in pulmonary vascular congestion and left hemithoracic airspace disease.
[2019-02-19 08:25] LABS: #Eosinphils 0.1 thou/uL (0.0-0.7); #Lymphocytes 1.2 thou/uL (1.20-3.40); #Monocytes 0.8 thou/uL (0.11-0.59); #Neutrophils 9.2 thou/uL (1.40-6.50); %Basophils 0.1 % (0.0-1.0); %Monocytes 6.6 % (0.0-10.0); %Neutrophils 81.3 % (42.0-75.0); Hemoglobin 13.1 g/dL (14.0-18.0); MDiff Complete? YES; Mean Corpuscular Hemoglobin 26.6 pg (27.0-31.0); Mean Corpuscular Volume 88.6 fL (78.0-98.0); Mean Platelet Volume 8.9 fL (7.4-10.4); Platelet Count 205 thou/uL (130-400); Red Blood Cell (RBC) Count 4.95 mill/uL (4.70-6.10); White Blood Cell (WBC) Count 11.3 thou/uL (4.8-10.8)
[2019-02-19] MEDS ORDERED: Dexamethasone 10 MG in Sodium Chloride 0.9% 50 ML IVPB STA (09:00)
[2019-02-19] MEDS ORDERED: Sodium Chloride For Inhalation 0.9% 3 ML NEB ONE ×3 (09:16→18:32)
[2019-02-19] MEDS: Enoxaparin Sodium 40 MG/0.4 ML SYRINGE SC SCH (09:24)
[2019-02-19] MEDS: Aspirin 325 MG TAB PO SCH (09:24)
[2019-02-19] MEDS: Carvedilol 6.25 MG TAB PO SCH ×2 (09:24→20:28)
[2019-02-19] MEDS: Famotidine/PF 20 mg/2ml Vial SLOW IVP SCH ×2 (09:25→20:28)
[2019-02-19] MEDS: cefTRIAXone\\ROCEPHIN 1 GM in Sodium Chloride 0.9% 100 ML IVPB SCH (09:25)
[2019-02-19] MEDS ORDERED: DC Sedation Protocol FS ONE (09:40)
[2019-02-19] MEDS: Spironolactone 25 MG TAB PO SCH (10:28)
[2019-02-19] MEDS: hydrALAZINE 25 MG TAB PO SCH (10:34)
[2019-02-19] MEDS: Isosorbide Dinitrate 20 MG TAB PO SCH (10:35)
[2019-02-19] MEDS ORDERED: Lisinopril 10 MG TAB PO SCH (11:00)
--- NOTE | 2019-02-19 13:17 | PDOC.PN ---
- Subjective Encounter Start Date: 02/19/19 Encounter Start Time: 11:16 Subjective: Extubated earlier today. No complaint. -: Denied chest pain or difficulty breathing. - Objective Resuscitation Status - Order Detail: 02/14/19 17:53 Resuscitation Status Routine Resuscitation Status: FULL: Full Resuscitation Vital Signs & Weight: Vital Signs (12 hours) Temp Pulse Resp BP Pulse Ox 02/19/19 12:17 143/98 H 02/19/19 12:00 99 F 97 02/19/19 10:34 81 02/19/19 09:51 81 15 100 02/19/19 09:49 81 15 100 02/19/19 09:45 81 15 100 02/19/19 09:24 144/92 H 02/19/19 09:01 74 144/92 H 02/19/19 08:00 98.9 F 11 L 99 02/19/19 06:00 8 L 02/19/19 04:00 98.6 F 10 L 02/19/19 02:31 76 02/19/19 02:00 8 L Weight Admit Weight 181 lb 7.047 oz Weight 178 lb 9.191 oz Most Recent Monitor Data Heart Rate from ECG 83 NIBP 144/104 NIBP BP-Mean 117 Respiration from ECG 17 SpO2 94 I&O: 02/18/19 02/19/19 02/20/19 06:59 06:59 06:59 Intake Total 765.6 1650 450 Output Total 2365 1469 1925 Balance -1599.4 181 -1475 Result Diagrams: 02/19/19 05:34 02/19/19 05:34 Phys Exam - Physical Examination Constitutional: NAD HEENT: PERRLA, moist MMs Neck: no JVD, supple fair air entry with some transmitted sound Cardiovascular: RRR, no significant murmur Gastrointestinal: soft, non-tender, no distention, positive bowel sounds Musculoskeletal: no edema Neurological: non-focal, moves all 4 limbs Psychiatric: A&O x 3 Dx/Plan (1) Acute respiratory failure with hypoxia and hypercapnia Code(s): J96.01 - ACUTE RESPIRATORY FAILURE WITH HYPOXIA; J96.02 - ACUTE RESPIRATORY FAILURE WITH HYPERCAPNIA Status: Acute Comment: Due to pulmonary congestion due to acute CHF. Improved with diuretics. extubated earlier today 02/19/2019 (2) Difficult airway for intubation Code(s): T88.4XXA - FAILED OR DIFFICULT INTUBATION, INITIAL ENCOUNTER Status: Acute (3) Acute on chronic systolic (congestive) heart failure Code(s): I50.23 - ACUTE ON CHRONIC SYSTOLIC (CONGESTIVE) HEART FAILURE Status : Acute (4) Cardiomyopathy Code(s): I42.9 - CARDIOMYOPATHY, UNSPECIFIED Status: Acute Comment: EF of 25 -30%. (5) AGNES (obstructive sleep apnea) Code(s): G47.33 - OBSTRUCTIVE SLEEP APNEA (ADULT) (PEDIATRIC) Status: Acute Comment: Suspected. given excessive daytime somnolence (6) Fluid overload Code(s): E87.70 - FLUID OVERLOAD, UNSPECIFIED Status: Acute Qualifiers: Hypervolemia type: other Qualified Code(s): E87.79 - Other fluid overload (7) Hypertension Code(s): I10 - ESSENTIAL (PRIMARY) HYPERTENSION Status: Acute Comment: Uncontrolled. Not compliant on meds. Control acceptable now. (8) Elevated CPK Status: Acute (9) Hypokalemia Code(s): E87.6 - HYPOKALEMIA Status: Acute Comment: Repleted (10) Bilateral pulmonary infiltrates on CXR Code(s): R91.8 - OTHER NONSPECIFIC ABNORMAL FINDING OF LUNG FIELD Status: Acute Comment: Most likely due to pulmonary congestion. Pneumonia is suspected but unlikely given improvement with diuretic. - Plan Restart lisinopril. Patient got hypotensive with isosorbide and hydralazine -: Patient was on quinapril at home and airway swelling was due to trauma -: Continue diuretic with potassium supplementation -: Monitor renal function. -: Restart diet after swallow eval. Needs cardiac cath. * .
--- NOTE | 2019-02-19 18:37 | PRG ---
DATE OF SERVICE: 02/19/2019 SUBJECTIVE: This is a very pleasant 58-year-old gentleman, who presented with new onset congestive heart failure. He eventually decompensated and required intubation. He had some tongue swelling, which was either thought to be due to an allergic reaction to his lisinopril, which he had been taking for quite some time or perhaps just trauma from the intubation. He was a difficult intubation. At this time, he is actually still in the intensive care unit and seems to be doing much better. He is relatively asymptomatic this morning. OBJECTIVE: VITAL SIGNS: His blood pressure is 115/86, heart rate is 78 and shows a sinus rhythm, O2 saturation 95%, respiratory rate is about 22 per minute. HEENT: Shows head to be normocephalic and atraumatic. CHEST: Actually clear to auscultation without any rales, rhonchi, or wheezing. CARDIOVASCULAR: Reveals a regular rate and rhythm. No gross murmurs. EXTREMITIES: Showed no clubbing, cyanosis, or edema today. He has been extubated yesterday, and today, he has continued to do very well. IMAGING DATA: His echocardiogram showed an ejection fraction of 25% to 30%. The left atrium was mildly dilated. Otherwise, there were no significant abnormalities noted, however, also has a history of sleep apnea. LABORATORY DATA: Today shows a WBC of 11.3, hemoglobin 13.1, and platelet count was 205,000. His sodium is 146, potassium 3.7, BUN 36, creatinine 1.24, and blood sugar was 110. On his urine drug screen, he was noted to be positive for marijuana as well as benzodiazepines. PRESENT MEDICATIONS: Include, 1. Ceftriaxone. 2. Aspirin 325 mg a day. 3. Coreg 6.25 mg b.i.d. 4. He is on Lovenox 40 mg once a day. 5. Pepcid IV. 6. Lasix 40 mg IV. 7. Lisinopril is being held as he has significant decrease in the blood pressure after these medications were given. 8. He is on Aldactone 50 mg q.a.m. 9. Clonidine as needed p.r.n. 10. Xanax as needed p.r.n. 11. Magnesium as indicated as well as other p.r.n. medications. At this time, overall, he is stable, improving with his congestive heart failure. When he is stable, most likely he will need to undergo cardiac catheterization to determine if he has underlying coronary artery disease as the possible etiology of the cardiomyopathy. Please note that yesterday after he received the hydralazine, isosorbide, and Coreg together, his blood pressure decreased down to 76/49. This did improve over time, and this morning, blood pressure is stable at 115/86. We are holding medications until the blood pressure is at least 120 systolically. Otherwise, he continues to do well, and further care of the patient will be by Dr. Brand when he visits again with the patient tomorrow. Job ID: [id number] MTDD
[2019-02-20 04:39] LABS: #Eosinphils 0.2 thou/uL (0.0-0.7); #Lymphocytes 2.1 thou/uL (1.20-3.40); #Monocytes 0.7 thou/uL (0.11-0.59); #Neutrophils 7.8 thou/uL (1.40-6.50); %Basophils 0.2 % (0.0-1.0); %Eosinophils 2.1 % (0.0-10.0); %Lymphocytes 19.4 % (21.0-51.0); %Monocytes 6.4 % (0.0-10.0); Mean Corpuscular HGB CONC 29.8 g/dL (32.0-36.0); Mean Corpuscular Hemoglobin 26.4 pg (27.0-31.0); Mean Corpuscular Volume 88.7 fL (78.0-98.0); Mean Platelet Volume 8.3 fL (7.4-10.4); Platelet Count 230 thou/uL (130-400); RBC Distribution Width 13.9 % (11.5-14.5); Red Blood Cell (RBC) Count 5.28 mill/uL (4.70-6.10); White Blood Cell (WBC) Count 10.8 thou/uL (4.8-10.8)
[2019-02-20 04:46] LABS: BUN (Urea Nitrogen) 30 mg/dL (8.4-25.7); Calc. Creatinine Clearance 80 mL/min (70-130); Calcium 9.3 mg/dL (7.8-10.44); Estimated GFR-MDRD 78; Glucose 101 mg/dL (70-105)
[2019-02-20 04:56] LABS: Anion Gap 13 mmol/L (10-20); Carbon Dioxide 37 mmol/L (22-29); Chloride 100 mmol/L (98-107); Potassium 4.2 mmol/L (3.5-5.1); Sodium 146 mmol/L (136-145)
--- NOTE | 2019-02-20 05:31 | PRG ---
DATE OF SERVICE: 02/19/2019 SUBJECTIVE: Jayme Sotomayor this morning awake, alert, responsive. OBJECTIVE: VITAL SIGNS: Pulse 52, blood pressure 144/92, respiratory rate 15. His cuff was deflated. I do not see any evidence of respiratory distress. He has leak, clearly his tidal volume decreased once his cuff was deflated. GENERAL: He appears to be in no distress. CHEST: Decreased breath sounds. No wheezing. No stridor. CARDIAC: Sinus tach. ABDOMEN: Soft. IMPRESSION: Hypertension, respiratory failure, traumatic intubation. PLAN: Decadron, racemic epinephrine was given. Extubate. Obviously, he has an issue, we will reintubate with a bronchoscope. One-half hour of critical time. Job ID: [id number]
[2019-02-20] MEDS ORDERED: Sodium Chloride For Inhalation 0.9% 3 ML NEB ONE (07:43)
[2019-02-20] MEDS: Furosemide 40 MG/4 ML VIAL SLOW IVP SCH (08:56)
[2019-02-20] MEDS: Aspirin 325 MG TAB PO SCH (08:56)
[2019-02-20] MEDS: Spironolactone 25 MG TAB PO SCH (08:56)
[2019-02-20] MEDS: Enoxaparin Sodium 40 MG/0.4 ML SYRINGE SC SCH (08:57)
[2019-02-20] MEDS: Famotidine/PF 20 mg/2ml Vial SLOW IVP SCH (08:57)
[2019-02-20] MEDS: cefTRIAXone\\ROCEPHIN 1 GM in Sodium Chloride 0.9% 100 ML IVPB SCH (08:58)
[2019-02-20] MEDS ORDERED: Carvedilol 6.25 MG TAB PO SCH (09:00)
[2019-02-20] MEDS ORDERED: Lisinopril 10 MG TAB PO SCH ×2 (09:00)
--- NOTE | 2019-02-20 16:24 | PDOC.PN ---
- Subjective Encounter Start Date: 02/20/19 Encounter Start Time: 10:23 Subjective: Doing well since extubation -: No fever, chest pain or SOB. - Objective Resuscitation Status - Order Detail: 02/14/19 17:53 Resuscitation Status Routine Resuscitation Status: FULL: Full Resuscitation Vital Signs & Weight: Vital Signs (12 hours) Temp Pulse Resp BP Pulse Ox 02/20/19 13:32 77 20 100 02/20/19 12:00 98.6 F 02/20/19 08:57 132/93 H 02/20/19 08:22 100 02/20/19 08:20 87 14 100 02/20/19 08:00 98.4 F 98 Weight Admit Weight 213 lb 7.047 oz Weight 176 lb 12.972 oz Most Recent Monitor Data Heart Rate from ECG 79 NIBP 91/72 NIBP BP-Mean 78 Respiration from ECG 25 SpO2 98 I&O: 02/19/19 02/20/19 02/21/19 06:59 06:59 06:59 Intake Total 1650 1890 1060 Output Total 1469 3810 365 Balance 181 -1920 695 Result Diagrams: 02/20/19 04:26 02/20/19 04:26 Phys Exam - Physical Examination HEENT: PERRLA, moist MMs No tong swelling Neck: no JVD, supple Respiratory: no rales, no rhonchi fair air entry bilaterally with some transmitted sound. Cardiovascular: RRR, no significant murmur Gastrointestinal: soft, non-tender, no distention, positive bowel sounds Musculoskeletal: no edema, pulses present Neurological: non-focal, moves all 4 limbs Psychiatric: A&O x 3 Dx/Plan (1) Acute respiratory failure with hypoxia and hypercapnia Code(s): J96.01 - ACUTE RESPIRATORY FAILURE WITH HYPOXIA; J96.02 - ACUTE RESPIRATORY FAILURE WITH HYPERCAPNIA Status: Acute Comment: Due to pulmonary congestion due to acute CHF. Improved with diuretics. extubated earlier today 02/19/2019 (2) Difficult airway for intubation Code(s): T88.4XXA - FAILED OR DIFFICULT INTUBATION, INITIAL ENCOUNTER Status: Acute (3) Acute on chronic systolic (congestive) heart failure Code(s): I50.23 - ACUTE ON CHRONIC SYSTOLIC (CONGESTIVE) HEART FAILURE Status : Acute (4) Cardiomyopathy Code(s): I42.9 - CARDIOMYOPATHY, UNSPECIFIED Status: Acute Comment: EF of 25 -30%. (5) AGNES (obstructive sleep apnea) Code(s): G47.33 - OBSTRUCTIVE SLEEP APNEA (ADULT) (PEDIATRIC) Status: Acute Comment: Suspected. given excessive daytime somnolence (6) Fluid overload Code(s): E87.70 - FLUID OVERLOAD, UNSPECIFIED Status: Acute Qualifiers: Hypervolemia type: other Qualified Code(s): E87.79 - Other fluid overload (7) Hypertension Code(s): I10 - ESSENTIAL (PRIMARY) HYPERTENSION Status: Acute Comment: Uncontrolled. Not compliant on meds. Control acceptable now. (8) Elevated CPK Status: Acute (9) Hypokalemia Code(s): E87.6 - HYPOKALEMIA Status: Acute Comment: Repleted (10) Bilateral pulmonary infiltrates on CXR Code(s): R91.8 - OTHER NONSPECIFIC ABNORMAL FINDING OF LUNG FIELD Status: Acute Comment: Most likely due to pulmonary congestion. Pneumonia is suspected but unlikely given improvement with diuretic. - Plan Change lasix to oral. -: adjust lisinopril and coreg to get adequate BP control. -: Can be transfered out of ICU if cleared by Pulm/critical care -: Follow renal function, electrolytes and I/O * .
[2019-02-20] MEDS ORDERED: Docusate 100 MG CAP PO PRN (18:00)
--- NOTE | 2019-02-20 18:12 | PRG ---
DATE OF SERVICE: 02/20/2019 SUBJECTIVE: Mr. Sotomayor is extubated, doing well today. The patient was started back on SUZY inhibitors over the weekend. OBJECTIVE: VITAL SIGNS: His blood pressure 97/75, pulse in the 80s and sinus. LUNGS: Clear. CARDIAC: Normal S1, normal S2. ABDOMEN: Soft and nontender. ASSESSMENT: 1. Congestive heart failure, systolic, likely to be a cardiomyopathy with global hypokinesis. 2. Respiratory failure, improved. 3. There was some concern about whether the SUZY inhibitors were causing throat swelling that was never documented. He is back on the SUZY inhibitors now. PLAN: 1. Okay to me to go to telemetry. 2. Tolerating carvedilol well. 3. Also on spironolactone. 4. There would be a consideration for cardiac catheterization prior to discharge. The patient's wishes to pursue this. I think it is most likely a cardiomyopathy, but certainly coronary artery disease could be a potential underlying problem. Job ID: [id number]
--- NOTE | 2019-02-20 18:16 | PRG ---
DATE OF SERVICE: 02/20/2019 SERVICE: Pulmonary Medicine. INTERVAL HISTORY: The patient is really doing quite well from respiratory standpoint. He extubated just fine yesterday and since then, he has had no respiratory issues. He has no complaints of chest pain, fevers, chills, nausea, or vomiting. Otherwise, there has been no interval change to his condition. He has a little bit of a cough with yellow sputum, which is improving significantly. LABORATORY DATA: WBC 10.8, hemoglobin 14.0, and platelets 230,000. Creatinine 1.17 and downtrending. Basic metabolic profile is otherwise unremarkable. Bicarb 37 and up-trending. ASSESSMENT: 1. Acute hypoxic respiratory failure. 2. Chronic hypercapnic respiratory failure. 3. Acute systolic heart failure. 4. Difficult airway. DISCUSSION AND PLAN: The patient is stable for transition out of the ICU to the telemetry unit. Pulmonary Critical Care will continue to follow along for the time being. The patient has been diuresed effectively down to euvolemia. I will back off on his blood pressure medicine ever so slightly, and provide him with p.o. elsa. Job ID: [id number]
[2019-02-20] MEDS: Carvedilol 6.25 MG TAB PO SCH (20:27)
[2019-02-20] MEDS ORDERED: Famotidine 20 MG TAB PO SCH (21:00)
[2019-02-21 05:03] LABS: BUN (Urea Nitrogen) 28 mg/dL (8.4-25.7); Calc. Creatinine Clearance 90 mL/min (70-130); Calcium 9.2 mg/dL (7.8-10.44); Estimated GFR-MDRD 90; Glucose 87 mg/dL (70-105); Magnesium 2.1 mg/dL (1.6-2.6)
[2019-02-21 05:12] LABS: Anion Gap 14 mmol/L (10-20); Carbon Dioxide 36 mmol/L (22-29); Chloride 96 mmol/L (98-107); Potassium 3.6 mmol/L (3.5-5.1); Sodium 142 mmol/L (136-145)
[2019-02-21] MEDS: Spironolactone 25 MG TAB PO SCH (08:09)
[2019-02-21] MEDS: Enoxaparin Sodium 40 MG/0.4 ML SYRINGE SC SCH (08:09)
[2019-02-21] MEDS: Furosemide 20 MG TAB PO SCH ×2 (08:09→14:45)
[2019-02-21] MEDS: Aspirin 325 MG TAB PO SCH (08:10)
[2019-02-21] MEDS: Carvedilol 6.25 MG TAB PO SCH ×2 (08:10→20:15)
[2019-02-21] MEDS: Lisinopril 10 MG TAB PO SCH ×3 (08:11→20:15)
[2019-02-21] MEDS ORDERED: Metolazone 2.5 MG TAB PO SCH (09:09)
[2019-02-21] MEDS ORDERED: Potassium Chloride 20 MEQ TAB PO SCH (09:30)
[2019-02-21] MEDS: Metolazone 2.5 MG TAB PO SCH (09:44)
--- NOTE | 2019-02-21 10:01 | PRG ---
DATE OF SERVICE: 02/21/2019 SERVICE: Pulmonary Medicine. INTERVAL HISTORY: The patient is doing really well from respiratory standpoint. Breathing comfortably. Remains on room air. His cough is settling down. His appetite is picking up. Otherwise, there has been no interval change to his condition. We are awaiting telemetry transition. PHYSICAL EXAMINATION: VITAL SIGNS: Afebrile, pulse 77, blood pressure 116/88, respirations 20, and saturation 98% on room air. GENERAL: The patient is awake and alert, in no apparent distress. LUNGS: Decent air entry. No prolonged expiratory phase. Minimal dependent crackles are noted. HEART: Normal rate and regular. ABDOMEN: Soft, nontender, nondistended. Bowel sounds are positive. MUSCULOSKELETAL: No cyanosis or clubbing. There is trace pitting in the bilateral lower extremities. NEUROLOGIC: Grossly nonfocal. LABORATORY DATA: Creatinine 1.03, potassium 3.6. Magnesium 2.1. Bicarb is stable at 36. ASSESSMENT: 1. Acute hypoxic respiratory failure, resolved. 2. Chronic hypercapnic respiratory failure. 3. Acute systolic heart failure. 4. Difficult airway. DISCUSSION AND PLAN: I will replace his potassium. He remained stable for transition out of the ICU to the telemetry unit. When he arrives there, he will have no further requirement for Pulmonary or Critical Care opinion, and I will sign off. Please call with additional questions or concerns through time. Job ID: [id number]
--- NOTE | 2019-02-21 10:13 | PRG ---
DATE OF SERVICE: 02/21/2019 SUBJECTIVE: Mr. Sotomayor is doing better. He is sitting up in a chair. He is breathing normally. No chest pain or pressure. OBJECTIVE: VITAL SIGNS: Blood pressure 116/88 and pulse 70s and sinus. LUNGS: Clear. CARDIAC: Normal S1 and normal S2. ABDOMEN: Soft and nontender. EXTREMITIES: No edema. ASSESSMENT: 1. Congestive heart failure systolic, acute on chronic, probably cardiomyopathy. 2. Hypokalemia, resolved. 3. Renal insufficiency, now resolved, none. Normal renal function. PLAN: He is on lisinopril as well as furosemide and carvedilol. Consideration for catheterization later this week. Apparently, the blood pressure must have been somewhat low, the carvedilol dose was reduced. Job ID: [id number]
--- NOTE | 2019-02-21 16:38 | PDOC.PN ---
- Subjective Encounter Start Date: 02/21/19 Encounter Start Time: 14:35 Subjective: No new problem -: had low BP earlier today hence lisinopril was held -: Patient who urinated initially after angulo removal could not void. - Objective Resuscitation Status - Order Detail: 02/14/19 17:53 Resuscitation Status Routine Resuscitation Status: FULL: Full Resuscitation Vital Signs & Weight: Vital Signs (12 hours) Temp BP Pulse Ox 02/21/19 14:46 93/70 02/21/19 12:00 97.8 F 02/21/19 09:00 98.3 F 02/21/19 08:10 116/88 02/21/19 08:00 97.7 F 98 Weight Admit Weight 213 lb 7.047 oz Weight 177 lb 14.609 oz Most Recent Monitor Data Heart Rate from ECG 81 NIBP 110/73 NIBP BP-Mean 85 Respiration from ECG 26 SpO2 94 I&O: 02/20/19 02/21/19 02/22/19 06:59 06:59 06:59 Intake Total 1890 1520 1020 Output Total 3810 780 800 Balance -1920 740 220 Result Diagrams: 02/20/19 04:26 02/21/19 04:11 Phys Exam - Physical Examination Constitutional: NAD HEENT: PERRLA, moist MMs Neck: supple fair air entry bilaterally. No crackles. Cardiovascular: RRR Gastrointestinal: soft, non-tender, no distention, positive bowel sounds Musculoskeletal: no edema, pulses present Neurological: non-focal, moves all 4 limbs awake andconversational. seem slow Psychiatric: A&O x 3 Dx/Plan (1) Acute respiratory failure with hypoxia and hypercapnia Code(s): J96.01 - ACUTE RESPIRATORY FAILURE WITH HYPOXIA; J96.02 - ACUTE RESPIRATORY FAILURE WITH HYPERCAPNIA Status: Acute Comment: Due to pulmonary congestion due to acute CHF. Improved with diuretics. extubated earlier today 02/19/2019 (2) Difficult airway for intubation Code(s): T88.4XXA - FAILED OR DIFFICULT INTUBATION, INITIAL ENCOUNTER Status: Acute (3) Acute on chronic systolic (congestive) heart failure Code(s): I50.23 - ACUTE ON CHRONIC SYSTOLIC (CONGESTIVE) HEART FAILURE Status : Acute (4) Cardiomyopathy Code(s): I42.9 - CARDIOMYOPATHY, UNSPECIFIED Status: Acute Comment: EF of 25 -30%. (5) AGNES (obstructive sleep apnea) Code(s): G47.33 - OBSTRUCTIVE SLEEP APNEA (ADULT) (PEDIATRIC) Status: Acute Comment: Suspected. given excessive daytime somnolence (6) Fluid overload Code(s): E87.70 - FLUID OVERLOAD, UNSPECIFIED Status: Acute Qualifiers: Hypervolemia type: other Qualified Code(s): E87.79 - Other fluid overload (7) Hypertension Code(s): I10 - ESSENTIAL (PRIMARY) HYPERTENSION Status: Acute Comment: Uncontrolled. Not compliant on meds. Control acceptable now. (8) Elevated CPK Status: Acute (9) Hypokalemia Code(s): E87.6 - HYPOKALEMIA Status: Acute Comment: Repleted (10) Bilateral pulmonary infiltrates on CXR Code(s): R91.8 - OTHER NONSPECIFIC ABNORMAL FINDING OF LUNG FIELD Status: Acute Comment: Most likely due to pulmonary congestion. Pneumonia is suspected but unlikely given improvement with diuretic. (11) Acute urinary retention Code(s): R33.8 - OTHER RETENTION OF URINE Status: Acute - Plan Start flomax and finasteride for presumed BPH -: Straight cath X 1 -: Decrease lisinopril dose. -: Continue diuretics. changed to oral. -: Monitor vitals, I/O, renal function anddaily weights. transfer to tele * .
[2019-02-21] MEDS ORDERED: Tamsulosin HCl 0.4 MG CAP PO SCH (16:45)
[2019-02-22] MEDS: Furosemide 20 MG TAB PO SCH ×2 (05:49→17:25)
--- NOTE | 2019-02-22 08:15 | RAD ---
XR Chest Pa Lat STANDARD HISTORY: Shortness of breath, pulmonary congestion FINDINGS: The heart size is normal. The lungs are well expanded without focal areas of consolidation, pneumothorax or pleural effusions. IMPRESSION: No radiographic evidence of acute cardiopulmonary process.
[2019-02-22 08:19] LABS: Anion Gap 10 mmol/L (10-20); BUN (Urea Nitrogen) 27 mg/dL (8.4-25.7); Calc. Creatinine Clearance 110 mL/min (70-130); Calcium 8.9 mg/dL (7.8-10.44); Carbon Dioxide 36 mmol/L (22-29); Chloride 93 mmol/L (98-107); Estimated GFR-MDRD Greater than 90; Glucose 96 mg/dL (70-105); Potassium 3.7 mmol/L (3.5-5.1); Sodium 135 mmol/L (136-145)
[2019-02-22] MEDS ORDERED: Potassium Chloride 20 MEQ TAB PO SCH (10:00)
[2019-02-22] MEDS: Aspirin 325 MG TAB PO SCH (10:01)
[2019-02-22] MEDS: Carvedilol 6.25 MG TAB PO SCH ×2 (10:01→20:30)
[2019-02-22] MEDS: Enoxaparin Sodium 40 MG/0.4 ML SYRINGE SC SCH (10:01)
[2019-02-22] MEDS: Tamsulosin HCl 0.4 MG CAP PO SCH (10:01)
[2019-02-22] MEDS: Spironolactone 25 MG TAB PO SCH (10:01)
[2019-02-22] MEDS: Metolazone 2.5 MG TAB PO SCH (10:02)
[2019-02-22] MEDS: Finasteride 5 MG TAB PO SCH (10:03)
[2019-02-22] MEDS: Lisinopril 10 MG TAB PO SCH ×2 (10:03→20:31)
--- NOTE | 2019-02-22 10:37 | PRG ---
DATE OF SERVICE: 02/22/2019 SUBJECTIVE: Mr. Sotomayor is feeling well. He is not short of breath at all now. No complaints. OBJECTIVE: VITAL SIGNS: Blood pressure 135/74, pulse 86, regular. LUNGS: Clear. CARDIAC: Normal S1, normal S2. ABDOMEN: Soft, nontender. EXTREMITIES: There is no edema. ASSESSMENT: 1. Congestive heart failure, systolic, acute on chronic, improved clinically now, currently not in heart failure, but has depressed left ventricular function. 2. Status post respiratory failure. 3. Initially was a difficult intubation. PLAN: 1. He is on lisinopril. 2. Diuretics, we will stop metolazone. 3. Recommend proceeding to cardiac catheterization to see if he has coronary disease. Discussed risks including stroke, heart attack, iodine allergy, interference of blood supply to leg or kidney and in the event of stenting, stent thrombosis, stent restenosis were all discussed. He understands and wished to proceed. This will be arranged for tomorrow. Job ID: [id number]
--- NOTE | 2019-02-22 15:19 | PDOC.PN ---
- Subjective Encounter Start Date: 02/22/19 Encounter Start Time: 13:17 Subjective: No new problem -: Denied chest pain, palpitation, dizziness or SOB -: passing urine freely. denied dysuria - Objective Resuscitation Status - Order Detail: 02/14/19 17:53 Resuscitation Status Routine Resuscitation Status: FULL: Full Resuscitation Vital Signs & Weight: Vital Signs (12 hours) Temp Pulse Resp BP BP BP Pulse Ox 02/22/19 14:30 98/62 02/22/19 14:28 90/59 L 02/22/19 14:09 86/64 L 02/22/19 12:45 97.4 F L 16 98 02/22/19 10:03 135/74 02/22/19 10:01 135/74 02/22/19 08:00 99 02/22/19 07:14 98.4 F 86 16 135/74 99 02/22/19 04:00 97.8 F 55 L 20 120/62 93 L Weight Admit Weight 213 lb 7.047 oz Weight 180 lb 8 oz Most Recent Monitor Data Heart Rate from ECG 91 NIBP 112/74 NIBP BP-Mean 86 Respiration from ECG 17 SpO2 96 I&O: 02/21/19 02/22/19 02/23/19 06:59 06:59 06:59 Intake Total 1520 1880 Output Total 780 1725 Balance 740 155 Result Diagrams: 02/20/19 04:26 02/22/19 07:45 Phys Exam - Physical Examination Constitutional: NAD HEENT: PERRLA, moist MMs Neck: no JVD, supple Respiratory: no wheezing, no rales, no rhonchi, clear to auscultation bilateral Cardiovascular: RRR, no significant murmur Gastrointestinal: soft, non-tender, no distention, positive bowel sounds Musculoskeletal: no edema, pulses present Neurological: non-focal, moves all 4 limbs Psychiatric: A&O x 3 Dx/Plan (1) Cardiomyopathy Code(s): I42.9 - CARDIOMYOPATHY, UNSPECIFIED Status: Acute Comment: EF of 25 -30%. Etiology unclear. (2) Acute respiratory failure with hypoxia and hypercapnia Code(s): J96.01 - ACUTE RESPIRATORY FAILURE WITH HYPOXIA; J96.02 - ACUTE RESPIRATORY FAILURE WITH HYPERCAPNIA Status: Acute Comment: Due to pulmonary congestion due to acute CHF. Improved with diuretics. extubated earlier today 02/19/2019 (3) Difficult airway for intubation Code(s): T88.4XXA - FAILED OR DIFFICULT INTUBATION, INITIAL ENCOUNTER Status: Acute Comment: Due to abnormal anatomy not angioedema. swelling occured if any after difficult intubation. (4) Acute on chronic systolic (congestive) heart failure Code(s): I50.23 - ACUTE ON CHRONIC SYSTOLIC (CONGESTIVE) HEART FAILURE Status : Acute (5) AGNES (obstructive sleep apnea) Code(s): G47.33 - OBSTRUCTIVE SLEEP APNEA (ADULT) (PEDIATRIC) Status: Acute Comment: Suspected. given excessive daytime somnolence (6) Fluid overload Code(s): E87.70 - FLUID OVERLOAD, UNSPECIFIED Status: Acute Qualifiers: Hypervolemia type: other Qualified Code(s): E87.79 - Other fluid overload (7) Hypertension Code(s): I10 - ESSENTIAL (PRIMARY) HYPERTENSION Status: Acute Comment: Uncontrolled. Not compliant on meds. Control acceptable now. (8) Elevated CPK Status: Acute (9) Hypokalemia Code(s): E87.6 - HYPOKALEMIA Status: Acute Comment: Repleted (10) Bilateral pulmonary infiltrates on CXR Code(s): R91.8 - OTHER NONSPECIFIC ABNORMAL FINDING OF LUNG FIELD Status: Acute Comment: Most likely due to pulmonary congestion. Pneumonia is suspected but unlikely given improvement with diuretic. (11) Acute urinary retention Code(s): R33.8 - OTHER RETENTION OF URINE Status: Acute - Plan Continue current medications. -: Monitor residual urine while continuing flomax and finasteride -: For Cardiac cath tomorrow. Start IVF tomorrow morning for LUISANA prophylaxis -: PT/OT eval and treat. -: moniroe renal function * .
[2019-02-23] MEDS: Carvedilol 6.25 MG TAB PO SCH ×2 (05:53→20:54)
[2019-02-23] MEDS: Aspirin 325 MG TAB PO SCH (05:53)
[2019-02-23] MEDS ORDERED: Sodium Chloride 0.9% 1,000 ML IV SCH (06:00)
[2019-02-23] MEDS ORDERED: Diazepam 5 MG TAB PO SCH (06:00)
[2019-02-23] MEDS ORDERED: Fentanyl 100 MCG/2 ML VIAL ONE (07:07)
[2019-02-23] MEDS ORDERED: Midazolam HCl 2 mg/2 ml Vial ONE (07:07)
[2019-02-23] MEDS ORDERED: Nitroglycerin 0.4 MG TAB (25 Tab Bottle) SL PRN (07:46)
[2019-02-23] MEDS ORDERED: Acetaminophen/Codeine 30-300mg Tablet PO PRN ×2 (07:46)
[2019-02-23] MEDS ORDERED: Sodium Chloride 0.9% 200 ML IV PRN (07:46)
[2019-02-23] MEDS: Sodium Chloride 0.9% 1,000 ML IV SCH ×2 (09:42→19:21)
[2019-02-23] MEDS ORDERED: Iopamidol 370 76% 100 ML VIAL ONE (09:48)
[2019-02-23] MEDS: Finasteride 5 MG TAB PO SCH (10:55)
[2019-02-23] MEDS: Spironolactone 25 MG TAB PO SCH (10:55)
[2019-02-23] MEDS: Tamsulosin HCl 0.4 MG CAP PO SCH (10:55)
[2019-02-23] MEDS: Lisinopril 10 MG TAB PO SCH ×2 (10:56→20:54)
[2019-02-23 12:39] VITALS: BMI 30.4
[2019-02-23 12:51] LABS: Anion Gap 10 mmol/L (10-20); BUN (Urea Nitrogen) 26 mg/dL (8.4-25.7); Calc. Creatinine Clearance 101 mL/min (70-130); Calcium 8.9 mg/dL (7.8-10.44); Carbon Dioxide 34 mmol/L (22-29); Chloride 95 mmol/L (98-107); Estimated GFR-MDRD Greater than 90; Glucose 92 mg/dL (70-105); Potassium 3.9 mmol/L (3.5-5.1); Sodium 135 mmol/L (136-145)
[2019-02-23] MEDS: Communication Order-Pharmacy FS SCH ×2 (19:20→19:21)
[2019-02-23] MEDS: Furosemide 20 MG TAB PO SCH (19:21)
--- NOTE | 2019-02-23 22:10 | PDOC.PN ---
- Subjective Encounter Start Date: 02/23/19 Encounter Start Time: 10:30 Doing well post cath. No complaints. - Objective Resuscitation Status - Order Detail: 02/14/19 17:53 Resuscitation Status Routine Resuscitation Status: FULL: Full Resuscitation Vital Signs & Weight: Vital Signs (12 hours) Temp Pulse Pulse Pulse Pulse Resp BP 02/23/19 19:15 97.5 F L 91 18 02/23/19 16:00 97.7 F 70 16 02/23/19 13:15 75 87 90 02/23/19 13:13 87 90 02/23/19 12:00 97.8 F 57 L 16 02/23/19 10:56 97/58 L BP BP BP BP Pulse Ox 02/23/19 19:15 118/77 94 L 02/23/19 16:00 107/65 95 02/23/19 13:15 124/86 143/98 H 153/89 H 02/23/19 13:13 143/98 H 153/89 H 02/23/19 12:00 124/86 96 02/23/19 10:56 Weight Admit Weight 228 lb 8 oz Weight 182 lb 11.2 oz Most Recent Monitor Data Heart Rate from ECG 91 NIBP 112/74 NIBP BP-Mean 86 Respiration from ECG 17 SpO2 96 I&O: 02/22/19 02/23/19 02/24/19 06:59 06:59 06:59 Intake Total 3130 770 1130 Output Total 1725 1130 500 Balance 155 -170 660 Result Diagrams: 02/20/19 04:26 02/23/19 12:25 Phys Exam - Physical Examination Constitutional: NAD Respiratory: no wheezing, no rales, no rhonchi, clear to auscultation bilateral Cardiovascular: RRR, no significant murmur Gastrointestinal: soft, non-tender, no distention Musculoskeletal: no edema Psychiatric: normal affect Skin: normal turgor Dx/Plan (1) BPH (benign prostatic hyperplasia) Code(s): N40.0 - BENIGN PROSTATIC HYPERPLASIA WITHOUT LOWER URINRY TRACT SYMP Status: Acute (2) Acute on chronic systolic (congestive) heart failure Code(s): I50.23 - ACUTE ON CHRONIC SYSTOLIC (CONGESTIVE) HEART FAILURE Status : Acute (3) Acute respiratory failure with hypoxia and hypercapnia Code(s): J96.01 - ACUTE RESPIRATORY FAILURE WITH HYPOXIA; J96.02 - ACUTE RESPIRATORY FAILURE WITH HYPERCAPNIA Status: Acute Comment: Due to pulmonary congestion due to acute CHF. Improved with diuretics. extubated earlier today 02/19/2019 (4) Cardiomyopathy Code(s): I42.9 - CARDIOMYOPATHY, UNSPECIFIED Status: Acute Comment: EF of 25 -30%. Etiology unclear. (5) Hypertension Code(s): I10 - ESSENTIAL (PRIMARY) HYPERTENSION Status: Acute Comment: Uncontrolled. Not compliant on meds. Control acceptable now. - Plan * Doing well post cath. * No significant disease. * Needs Life Vest assessment. * Anticipate discharge tomorrow.
[2019-02-24 05:54] LABS: Anion Gap 10 mmol/L (10-20); BUN (Urea Nitrogen) 22 mg/dL (8.4-25.7); Calc. Creatinine Clearance 98 mL/min (70-130); Calcium 9.1 mg/dL (7.8-10.44); Carbon Dioxide 33 mmol/L (22-29); Chloride 96 mmol/L (98-107); Estimated GFR-MDRD Greater than 90; Glucose 99 mg/dL (70-105); Potassium 4.1 mmol/L (3.5-5.1); Sodium 135 mmol/L (136-145)
[2019-02-24] MEDS ORDERED: Aspirin 325 MG TAB PO SCH (09:00)
--- NOTE | 2019-02-24 09:12 | PRG ---
DATE OF SERVICE: 02/24/2019 SUBJECTIVE: Mr. Sotomayor has undergone fitting for the LifeVest. He is tolerating that well. No chest pain or pressure. OBJECTIVE: VITAL SIGNS: Blood pressure low 97/60 and pulse 80. LUNGS: Clear. CARDIAC: Normal S1, normal S2. ABDOMEN: Soft and nontender. EXTREMITIES: No edema. ASSESSMENT: 1. Cardiomyopathy. 2. Systolic heart failure, acute on chronic, now compensated. 3. Mild nonobstructive atherosclerotic heart disease. PLAN: 1. Coreg 6.25 mg twice a day, dose to be increased later, if blood pressure allows to 12.5 mg twice a day. 2. Lisinopril 10 mg a day. 3. Spironolactone 25 mg a day. 4. Lasix 40 mg a day. 5. Aspirin 81 mg a day. 6. Crestor 20 mg a day. 7. He is to wear the LifeVest for 3 months with ejection fraction remains below 35%, permanent defibrillator implantation. He will follow up in our office in a couple of weeks with the base met first. 8. We will add Crestor 20 mg a day. 9. He can go home and see Margret Leija in our office in a couple of weeks. If the blood pressure allows, increase the Coreg. He needs to be on medicines for 3 months. If his ejection fraction remains below 35%, defibrillator implantation should be considered. Job ID: [id number]
[2019-02-24] MEDS: Spironolactone 25 MG TAB PO SCH ×2 (10:00→10:14)
[2019-02-24] MEDS: Furosemide 40 MG TAB PO SCH ×2 (10:00→10:14)
[2019-02-24] MEDS: Finasteride 5 MG TAB PO SCH (10:05)
[2019-02-24] MEDS: Tamsulosin HCl 0.4 MG CAP PO SCH (10:05)
[2019-02-24] MEDS: Lisinopril 10 MG TAB PO SCH (10:11)
[2019-02-24] MEDS: Communication Order-Pharmacy FS SCH (10:23)
[2019-02-24] MEDS ORDERED: Aspirin Chewable 81 MG TAB PO SCH (10:30)
[2019-02-24] MEDS: Carvedilol 6.25 MG TAB PO SCH (10:49)
[2019-02-24 15:36] VITALS: BP 116/72; TEMP 97.5
[2019-02-24] MEDS ORDERED: Rosuvastatin 20 MG TAB PO SCH (21:00)
[2019-02-25] MEDS ORDERED: Furosemide 20 MG TAB PO SCH (07:30)
[2019-02-25] MEDS ORDERED: Lisinopril 10 MG TAB PO SCH (09:00)
[2019-02-25] MEDS ORDERED: Aspirin Chewable 81 MG TAB PO SCH (09:00)
[2019-02-25] MEDS ORDERED: Tamsulosin HCl 0.4 MG CAP PO SCH (21:00)
--- NOTE | 2019-02-26 03:25 | DIS ---
DATE OF ADMISSION: 02/14/2019 DATE OF DISCHARGE: 02/24/2019 DISCHARGE DIAGNOSES: 1. Acute on chronic systolic heart failure. 2. Cardiomyopathy with ejection fraction of 25%-30%, nonischemic. 3. Acute hypoxic and hypercapnic respiratory failure. 4. Hypertensive urgency. 5. Hypertension. HISTORY OF PRESENT ILLNESS: The patient is a 58-year-old male, who presented complaining primarily of some dyspnea on exertion. He had some radiographic findings suggestive of congestive heart failure and elevated BNP. He required some BiPAP initially in the emergency department and was admitted to the [facility]. He was started on SUZY inhibitors, aspirin, and nitrates. Echocardiogram was ordered. The patient had significantly elevated blood pressures and was felt to be due to some noncompliance. HOSPITAL COURSE: The patient, in the [facility], was getting some diuresis and treatment as above. He developed acute respiratory failure that evening. He required intubation. Unfortunately, multiple providers attempted and failed intubation and the patient was finally successfully intubated over the following couple of days. He was followed by Pulmonology and had continued diuresis and respiratory support. His oxygen requirements improved dramatically and he was able to be weaned off the ventilator. Echocardiogram results did reveal an ejection fraction of 25%-30% consistent with cardiomyopathy. Once the patient was stabilized off the ventilator, he subsequently underwent heart catheterization, which revealed no significant occlusive disease. Given the cardiomyopathy, the patient was then evaluated and fitted for a LifeVest to have continued outpatient follow up with Cardiology. PHYSICAL EXAMINATION: VITAL SIGNS: On the day of discharge, temperature is 97.5 pulse 83, respirations 16, O2 saturation 96% on room air, BP 116/72. GENERAL APPEARANCE: The patient was awake, alert, oriented, pleasant, and cooperative. HEART: Regular rate and rhythm without murmurs, gallops, or rubs. LUNGS: Clear to auscultation bilaterally with good chest wall expansion and air exchange. ABDOMEN: Soft, nontender, and nondistended. Positive bowel sounds. No masses. No organomegaly. EXTREMITIES: No cyanosis, clubbing, or edema. DISPOSITION: The patient is discharged to home. ACTIVITY: As tolerated. He will be on a heart-healthy diet. DISCHARGE MEDICATIONS: He will be on: 1. Aspirin 81 mg daily. 2. Coreg 6.25 mg b.i.d. 3. Finasteride 5 mg daily. 4. Lasix 20 mg daily. 5. Lisinopril 10 mg daily. 6. Rosuvastatin 20 mg at bedtime. 7. Aldactone 25 mg q.a.m. 8. Tamsulosin 0.4 mg at bedtime. He will stop: 1. Quinapril. 2. Clonidine. 3. Amlodipine. FOLLOWUP: He will follow up with Dr. Vieyra, Dr. Brand, and [facility] in [place] on 03/03/2019. The patient can return to the hospital should he have any problems prior to that time. TIME SPENT: Total time in discharge planning including [id number] time with the patient was 37 minutes. Job ID: [id number]
== END 2019-02-24 18:13 | disposition home or self-care (01) | DRG 208 ==
LOC: ERS 11:28 → ERHOLD 15:25 → IMCU/EMU 17:24 → CCU 02-15 00:54 → 2NO 02-21 20:01
PROVIDERS: ADMIT Internal Medicine; ATTEND Internal Medicine
PROC: 5A09357 Assistance with Respiratory Ventilation, Less than 24 Consecutive Hours, Continuous Positive Airway Pressure (ICD-10-PCS; principal; 2019-02-14)
PROC: 5A1945Z Respiratory Ventilation, 24-96 Consecutive Hours (ICD-10-PCS; 2019-02-15)
PROC: 0BH17EZ Insertion of Endotracheal Airway into Trachea, Via Natural or Artificial Opening (ICD-10-PCS; 2019-02-15)
PROC: 4A023N7 Measurement of Cardiac Sampling and Pressure, Left Heart, Percutaneous Approach (ICD-10-PCS; 2019-02-23)
PROC: B2111ZZ Fluoroscopy of Multiple Coronary Arteries using Low Osmolar Contrast (ICD-10-PCS; 2019-02-23)
PROC: B2151ZZ Fluoroscopy of Left Heart using Low Osmolar Contrast (ICD-10-PCS; 2019-02-23)
DX: J96.22 Acute and chronic respiratory failure with hypercapnia (principal); I50.23 Acute on chronic systolic (congestive) heart failure; I42.9 Cardiomyopathy, unspecified; G47.33 Obstructive sleep apnea (adult) (pediatric); J96.01 Acute respiratory failure with hypoxia; J96.12 Chronic respiratory failure with hypercapnia; I11.0 Hypertensive heart disease with heart failure; T88.4XXA Failed or difficult intubation, initial encounter; I25.10 Atherosclerotic heart disease of native coronary artery without angina pectoris; I16.0 Hypertensive urgency; E66.9 Obesity, unspecified; F17.210 Nicotine dependence, cigarettes, uncomplicated; E87.6 Hypokalemia; N28.9 Disorder of kidney and ureter, unspecified; R33.8 Other retention of urine; N40.1 Benign prostatic hyperplasia with lower urinary tract symptoms; Z91.14 Patient's other noncompliance with medication regimen; Z68.30 Body mass index [BMI] 30.0-30.9, adult
CPT/HCPCS: 36415; 71045; 71046; 76942; 80048; 80053; 80306; 81003; 81015; 82550; 82553; 82805; 83735; 83880; 84484; 85025; 93005; 93306; 93458; 93798; 94002; 94003; 94640; 94660; 94760; 96374; 99152; 99153; C1769; C9113; J0696; J1100; J1200; J1644; J1650; J1940; J2060; J2250; J2704; J2920; J3010; J3475; J3490; J7050; Q9967; S0028